=== PATIENT | male | born 1950 | race Caucasian/White ===

== ENCOUNTER 2018-08-04 13:50 | Emergency (ER) | payer OTHER ==
--- OUTSIDE RECORDS SUMMARY | 2018-08-04 14:32 | XMS REPORT ---
:1950 [facility] Address [address] [place] [address] Dr. Martínez [address] [place] [id number] Care Team Providers Name Role Phone Unavailable Unavailable Unavailable Problems This patient has no known problems. Allergies, Adverse Reactions, Alerts This patient has no known allergies or adverse reactions. Medications This patient has no known medications.
[2018-08-04 14:50] LABS: Absolute Lymphocytes (CBC) 1.4 K/uL (0.7-4.9); Absolute Monocytes 0.7 K/uL (0.1-1.3); Absolute Neutrophil 7.4 K/uL (1.8-8.0); Basophils % 0.2 % (0-1.3); Eosinophils % 0.6 % (0-4.4); Hematocrit 37.5 % (39.6-49.0); Lymphocytes % 14.2 % (15.3-44.8); MPV 7.4 fL (7.6-11.3); Monocytes % 7.6 % (3.3-12.3); RBC Red Blood Cell Count 4.16 M/uL (4.33-5.43)
[2018-08-04 15:09] LABS: BUN Blood Urea Nitrogen 23 mg/dL (7-18); Bicarbonate 29 mmol/L (21-32); Glucose Level 74 mg/dL (74-106); Magnesium 2.2 mg/dL (1.8-2.4); Potassium 4.3 mmol/L (3.5-5.1); Sodium Level 142 mmol/L (136-145); Troponin I < 0.02 ng/mL (0.0-0.045)
[2018-08-04] MEDS ORDERED: NA CHLORIDE 0.9% 500 ML ONE (15:34)
[2018-08-04] MEDS ORDERED: KETOROLAC 30 MG/ML INJ ONE (15:34)
--- NOTE | 2018-08-04 15:41 | EDPHYS ---
Physician Documentation [facility] Name: Stephen Rachel Age: 67 yrs Sex: Male : 1950 Arrival Date: 08/04/2018 Time: 13:53 Bed 14 Private MD: ED Physician Benjy Carroll HPI: 08/04 14:25 This 67 yrs old Male presents to ER via Ambulatory with complaints of Arm cp Problem, Hand Pain. 14:25 The patient or guardian complains of pain, that is acute. The complaints affect the cp right hand, left hand. Onset: The symptoms/episode began/occurred today, started after working outside and building chicken coup. Associated signs and symptoms: Pertinent negatives: numbness, swelling, warmth, weakness. Patient c/o cramping both hands that radiates up arms. Historical: - Allergies: 13:55 PENICILLINS; hj - PMHx: 13:55 TIA; hj - PSHx: 13:55 Knee surgery; neck surgery; Tonsillectomy; hj ROS: 14:30 Constitutional: Negative for body aches, chills, fever, poor PO intake. cp 14:30 Eyes: Negative for injury, pain, redness, and discharge. cp 14:30 ENT: Negative for drainage from ear(s), ear pain, sore throat, difficulty swallowing, difficulty handling secretions. 14:30 Neck: Negative for pain with movement, pain at rest, stiffness, bony tenderness. 14:30 Cardiovascular: Negative for chest pain, edema, palpitations. 14:30 Respiratory: Negative for cough, shortness of breath, wheezing. 14:30 Abdomen/GI: Negative for abdominal pain, nausea, vomiting, and diarrhea, black/tarry stool, flatulence. 14:30 MS/extremity: Positive for of the left hand and right hand, cramping pain, Negative for injury or acute deformity, decreased range of motion, paresthesias. 14:30 Skin: Negative for cellulitis, rash. 14:30 Neuro: Negative for altered mental status, headache, speech changes, weakness. 14:30 All other systems are negative. Exam: 14:30 ECG was reviewed by the Attending Physician. cp 14:35 Constitutional: The patient appears in no acute distress, alert, awake, cp non-diaphoretic, non-toxic, well developed, well nourished. 14:35 Head/Face: Normocephalic, atraumatic. cp 14:35 Eyes: Periorbital structures: appear normal, Conjunctiva: normal, no exudate, no injection, Sclera: no appreciated abnormality, Lids and lashes: appear normal, bilaterally. 14:35 ENT: External ear(s): are unremarkable, Ear canal(s): are normal, clear, TM's: bulging, is not appreciated, bilaterally, dullness, bilaterally, erythema, is not appreciated, bilaterally, Nose: is normal, Mouth: Lips: moist, Oral mucosa: pink and intact, moist, Posterior pharynx: Airway: no evidence of obstruction, patent, Tonsils: are normal in appearance, swelling, is not appreciated, erythema, is not appreciated, exudate, is not appreciated. 14:35 Neck: ROM/movement: is normal, is supple, without pain, no range of motions limitations, no nuchal rigidity. 14:35 Chest/axilla: Inspection: normal, Palpation: is normal, no crepitus, no tenderness. 14:35 Cardiovascular: Rate: normal, Rhythm: regular. 14:35 Respiratory: the patient does not display signs of respiratory distress, Respirations: normal, no use of accessory muscles, no retractions, no shallow respirations, labored breathing, is not present, Breath sounds: are clear throughout, no decreased breath sounds, no stridor, no wheezing. 14:35 Abdomen/GI: Inspection: abdomen appears normal, Palpation: abdomen is soft and non-tender, in all quadrants, involuntary guarding, is not appreciated. 14:35 Back: pain, is absent, ROM is normal. 14:35 Musculoskeletal/extremity: Extremities: grossly normal except: noted in the right hand and left hand: tenderness, There is no evidence of decreased ROM, swelling. 14:35 Skin: cellulitis, is not appreciated, no rash present. 14:35 Neuro: Orientation: to person, place \T\ time. Mentation: is normal, Cerebellar function: is grossly normal, Motor: moves all fours, strength is normal, Sensation: is normal. Vital Signs: 13:55 BP 144 / 86; Pulse 84; Resp 18; Temp 98.2(TE); Pulse Ox 97% on R/A; Weight 86.64 kg; hj Height 6 ft. 0 in. (182.88 cm); Pain 5/10; 13:55 Body Mass Index 25.91 (86.64 kg, 182.88 cm) hj MDM: 14:15 Patient medically screened. cp 15:40 Data reviewed: vital signs, nurses notes, lab test result(s), EKG, and as a result, I cp will discharge patient. 15:40 Differential diagnosis: contusion, tendonitis, fracture, cardiac arrythmia. Test cp interpretation: by ED physician or midlevel provider: ECG. Counseling: I had a detailed discussion with the patient and/or guardian regarding: the historical points, exam findings, and any diagnostic results supporting the discharge/admit diagnosis, lab results, radiology results, to return to the emergency department if symptoms worsen or persist or if there are any questions or concerns that arise at home. 08/04 14:21 Order name: BMP; Complete Time: 15:10 cp 08/04 15:10 Interpretation: Normal except: BUN 23; CRE 1.60; GFR 43. cp 08/04 14:21 Order name: CBC with Diff; Complete Time: 15:10 cp 08/04 15:11 Interpretation: Normal except: RBC 4.16; HGB 12.4; HCT 37.5; MPV 7.4; MARTY% 77.4; LYM% cp 14.2. 08/04 14:21 Order name: Troponin I; Complete Time: 15:10 cp 08/04 14:21 Order name: Magnesium; Complete Time: 15:10 cp 08/04 14:21 Order name: EKG; Complete Time: 14:21 cp 08/04 14:21 Order name: EKG - Nurse/Tech; Complete Time: 14:38 cp EC:30 Rate is 79 beats/min. Rhythm is regular. CT interval is normal. QRS interval is normal. cp QT interval is normal. Interpreted by me. Reviewed by me. Administered Medications: 15:25 Drug: TORadol - Ketorolac 15 mg Route: IVP; Site: right antecubital; sg 15:50 Follow up: Response: No adverse reaction; Pain is decreased sg 15:25 Drug: NS 0.9% 500 ml Route: IV; Rate: bolus; Site: right antecubital; sg 16:00 Follow up: Response: No adverse reaction; IV Status: Completed infusion; IV Intake: sg 500ml Disposition: 16:46 Co-signature as Attending Physician, Benjy Carroll MD. Disposition: 08/04/18 15:40 Discharged to Home. Impression: Cramp and spasm - hands and forearms. - Condition is Stable. - Discharge Instructions: Dehydration, Adult, Muscle Cramps and Spasms. - Medication Reconciliation Form, Thank You Letter, Antibiotic Education, Prescription Opioid Use form. - Follow up: Private Physician; When: 2 - 3 days; Reason: Recheck today's complaints. - Problem is new. - Symptoms have improved. Signatures: Dispatcher [employer] EDMS Hari Samaniego RN RN sg Zachariah Reddy RN RN Christian Niño PA PA cp Starr, Gregory, MD MD gs Botello, Elizabeth eb Corrections: (The following items were deleted from the chart) 15:43 15:40 08/04/2018 15:40 Discharged to Home. Impression: Cramp and spasm - hands and cp forearms. Condition is Stable. Forms are Medication Reconciliation Form, Thank You Letter, Antibiotic Education, Prescription Opioid Use. Follow up: Private Physician; When: 2 - 3 days; Reason: Recheck today's complaints. Problem is new. Symptoms have improved. cp 16:08 15:43 08/04/2018 15:40 Discharged to Home. Impression: Cramp and spasm - hands and eb forearms. Condition is Stable. Discharge Instructions: Dehydration, Adult, Muscle Cramps and Spasms. Forms are Medication Reconciliation Form, Thank You Letter, Antibiotic Education, Prescription Opioid Use. Follow up: Private Physician; When: 2 - 3 days; Reason: Recheck today's complaints. Problem is new. Symptoms have improved. cp
--- NOTE | 2018-08-04 15:41 | ER ---
Nurse's Notes [facility] Name: Stephen Rachel Age: 67 yrs Sex: Male : 1950 Arrival Date: 08/04/2018 Time: 13:53 Bed 14 Private MD: Diagnosis: Cramp and spasm-hands and forearms Presentation: 08/04 13:53 Presenting complaint: Patient states: i built a chicken coup today and took a lunch hj break and noticed both my hands and arms started cramping; denies chest pain, denies SOB; denies trauma to the both hands and arms;. Transition of care: patient was not received from another setting of care. Onset of symptoms was August 04, 2018. Risk Assessment: Do you want to hurt yourself or someone else? Patient reports no desire to harm self or others. Initial Sepsis Screen: Does the patient meet any 2 criteria? No. Patient's initial sepsis screen is negative. Does the patient have a suspected source of infection? No. Patient's initial sepsis screen is negative. Care prior to arrival: None. 13:53 Method Of Arrival: Ambulatory 13:53 Acuity: ENEIDA 3 hj Historical: - Allergies: 13:55 PENICILLINS; hj - PMHx: 13:55 TIA; hj - PSHx: 13:55 Knee surgery; neck surgery; Tonsillectomy; Vital Signs: 13:55 BP 144 / 86; Pulse 84; Resp 18; Temp 98.2(TE); Pulse Ox 97% on R/A; Weight 86.64 kg; hj Height 6 ft. 0 in. (182.88 cm); Pain 5/10; 13:55 Body Mass Index 25.91 (86.64 kg, 182.88 cm) ED Course: 13:53 Patient arrived in ED. hj 13:55 Triage completed. hj 13:56 Arm band placed on right wrist. hj 14:04 Christian Henderson PA is [facility]. cp 14:04 Benjy Carroll MD is Attending Physician. cp 14:23 EKG done, by chemistry technologist. reviewed by Christian WHEELER. sm3 14:28 Hari Samaniego, RN is Primary Nurse. sg 14:33 Initial lab(s) drawn, by me, sent to lab. Inserted saline lock: 20 gauge in right dh3 antecubital area, using aseptic technique. Blood collected. Administered Medications: 15:25 Drug: TORadol - Ketorolac 15 mg Route: IVP; Site: right antecubital; sg 15:50 Follow up: Response: No adverse reaction; Pain is decreased 15:25 Drug: NS 0.9% 500 ml Route: IV; Rate: bolus; Site: right antecubital; sg 16:00 Follow up: Response: No adverse reaction; IV Status: Completed infusion; IV Intake: sg 500ml Intake: 16:00 IV: 500ml; Total: 500ml. Outcome: 15:40 Discharge ordered by . naomi 16:08 Patient left the ED. eb Signatures: Hari Samaniego RN RN Zachariah Reddy RN RN hj Page, Corey, PA PA cp Herrera, Deanna [facility] Peg De Oliveira Shakira 3 Corrections: (The following items were deleted from the chart) 13:58 13:55 Pulse 84bpm; Resp 18bpm; Pulse Ox 97% RA; Temp 98.2F Temporal; 86.64 kg; Height 6 hj ft. 0 in.; BMI: 25.9; Pain 5/10; hj
[2018-08-04 16:26] VITALS: BP 144/86; TEMP 98.2; O2SAT 97
--- NOTE | 2018-08-05 08:29 | EKG ---
Test Date: 2018-08-04 Test Time: 14:23:50 Oil Well Engineer: ZIA MEASUREMENT RESULTS: Intervals: Rate: 79 KS: 148 QRSD: 74 QT: 352 QTc: 403 [place]: P: 45 KS: 148 QRS: 57 T: 60 INTERPRETIVE STATEMENTS: Normal sinus rhythm Normal ECG Compared to ECG 03/15/2017 16:22:04 No significant changes Electronically Signed On 08-05-18 08:28:30 CDT by Silver Tony
== END 2018-08-04 16:08 | disposition home or self-care (01) ==
LOC: ER 13:50
DX: R25.2 Cramp and spasm (principal); Z88.0 Allergy status to penicillin
CPT/HCPCS: 36415; 80048; 83735; 84484; 85025; 93005; 96361; 96374; 99284

== ENCOUNTER 2021-01-01 16:46 | Emergency (ER) | payer OTHER ==
[2021-01-01 17:23] LABS: Absolute Lymphocytes (CBC) 1.9 K/uL (0.7-4.9); Basophils % 0.2 % (0-1.3); Hematocrit 39.7 % (39.6-49.0); Lymphocytes % 19.5 % (15.3-44.8); MPV 6.8 fL (7.6-11.3); RBC Red Blood Cell Count 4.35 M/uL (4.33-5.43)
[2021-01-01 17:46] LABS: Albumin 3.4 g/dL (3.4-5.0); Bilirubin Direct 0.1 mg/dL (0-0.2); Bilirubin Total 0.3 mg/dL (0.2-1.0); Potassium 4.1 mmol/L (3.5-5.1); Protein, Total 7.3 g/dL (6.4-8.2)
[2021-01-01] MEDS ORDERED: MORPHINE 4 MG/ML SYR ONE (17:48)
[2021-01-01] MEDS ORDERED: ONDANSETRON 4 MG/2 ML VIAL ONE (17:48)
--- NOTE | 2021-01-01 19:00 | RAD REPORT ---
EXAM DESCRIPTION: CTAbdomen Pelvis W Contrast - 01/01/2021 6:45 pm CLINICAL HISTORY: Abdominal pain. ABD PAIN COMPARISON: No comparisons TECHNIQUE: Biphasic CT imaging of the abdomen and pelvis was performed with 100 ml non-ionic IV cont rast. All CT scans are performed using dose optimization technique as appropriate and may include automated exposure control or mA/KV adjustment according to patient size. FINDINGS: The lung bases are clear. The liver, spleen, pancreas, adrenal glands and kidneys are within normal limits. 29 mm medial benign cyst right kidney. No bowel obstruction, free air, free fluid or abscess. The appendix is normal. No evidence of signi ficant lymphadenopathy. No suspicious bony findings. IMPRESSION: No acute intra-abdominal or pelvic finding.
--- NOTE | 2021-01-01 19:06 | EDPHYS ---
Physician Documentation [facility] Name: Stephen Rachel Age: 70 yrs Sex: Male : 1950 Arrival Date: 01/01/2021 Time: 16:47 Bed 14 Private MD: Rosario Schmitt ED Physician Melvin Adams HPI: 01/01 17:18 This 70 yrs old Male presents to ER via Ambulatory with complaints of jr8 Abdominal Pain. 17:18 The patient presents with abdominal pain. Onset: The symptoms/episode began/occurred jr8 gradually, 2 day(s) ago, and became worse and became persistent. The symptoms do not radiate. Associated signs and symptoms: Pertinent positives: nausea. The symptoms are described as stabbing. Severity of pain: At its worst the pain was moderate in the emergency department the pain is unchanged. The patient has not experienced similar symptoms in the past. The patient has not recently seen a physician. Patient also noticed that he had a defect near the umbilical region that is exquisitely tender as well. Denies trauma to the abdomen.. Historical: - Allergies: 16:50 PENICILLINS; tw2 - Home Meds: 16:56 levothyroxine 50 mcg cap 1 cap once daily [Active]; clopidogrel 75 mg oral tab 1 tab tw2 once daily [Active]; losartan 50 mg oral tab 1 tab 2 times per day [Active]; atorvastatin 20 mg oral tab 1 tab once daily [Active]; Zyrtec 10 mg Oral tab 1 tab once daily [Active]; sildenafil 100 mg oral tab 1 tab once daily [Active]; 17:02 pantoprazole 40 mg oral TbEC 1 tab once daily [Active]; es2 - PMHx: 16:50 TIA; tw2 16:56 Hypothyroidism; tw2 - PSHx: 16:50 Tonsillectomy; tw2 - Immunization history:: Client reports receiving the 2nd dose of the Covid vaccine. - Social history:: Smoking status: Patient denies any tobacco usage or history of. Patient uses alcohol, occasionally. ROS: 17:18 Eyes: Negative for injury, pain, redness, and discharge, ENT: Negative for injury, jr8 pain, and discharge, Neck: Negative for injury, pain, and swelling, Cardiovascular: Negative for chest pain, palpitations, and edema, Respiratory: Negative for shortness of breath, cough, wheezing, and pleuritic chest pain, Back: Negative for injury and pain, MS/Extremity: Negative for injury and deformity, Skin: Negative for injury, rash, and discoloration, Neuro: Negative for headache, weakness, numbness, tingling, and seizure. 17:18 Abdomen/GI: Negative for abdominal pain, nausea. Exam: 17:18 Cardiovascular: Regular rate and rhythm with a normal S1 and S2. No gallops, murmurs, jr8 or rubs. Normal PMI, no JVD. No pulse deficits. Respiratory: Lungs have equal breath sounds bilaterally, clear to auscultation and percussion. No rales, rhonchi or wheezes noted. No increased work of breathing, no retractions or nasal flaring. Back: No spinal tenderness. No costovertebral tenderness. Full range of motion. Skin: Warm, dry with normal turgor. Normal color with no rashes, no lesions, and no evidence of cellulitis. MS/ Extremity: Pulses equal, no cyanosis. Neurovascular intact. Full, normal range of motion. Neuro: Awake and alert, GCS 15, oriented to person, place, time, and situation. Cranial nerves II-XII grossly intact. Motor strength 5/5 in all extremities. Sensory grossly intact. 17:18 Constitutional: The patient appears alert, awake, in obvious pain. 17:18 Abdomen/GI: Inspection: distension, that is mild, Bowel sounds: high pitched, all quadrants. Palpation: soft, in all quadrants, moderate abdominal tenderness, in the abdomen diffusely, mass, is not appreciated, rebound tenderness, is not appreciated, voluntary guarding, is not appreciated, involuntary guarding, is not appreciated, no appreciated organomegaly, Indicators: McBurney's point is not tender, Jackson's sign is negative, Rovsing's sign is negative, Hernia: noted in the umbilical area, tenderness, that is severe. Vital Signs: 16:48 BP 168 / 71; Pulse 83; Resp 18; Temp 98.3(TE); Pulse Ox 95% on R/A; Weight 90.72 kg; tw2 Height 6 ft. 0 in. (182.88 cm); Pain 7/10; 17:06 BP 158 / 74; Pulse 84; Resp 17; Pulse Ox 95% on R/A; es2 16:48 Body Mass Index 27.12 (90.72 kg, 182.88 cm) tw2 MDM: 17:07 Patient medically screened. jr8 19:04 Data reviewed: vital signs, nurses notes, lab test result(s), radiologic studies, CT jr8 scan. Data interpreted: Pulse oximetry: on room air is 95 %. Interpretation: normal. Counseling: I had a detailed discussion with the patient and/or guardian regarding: the historical points, exam findings, and any diagnostic results supporting the discharge/admit diagnosis, lab results, radiology results, the need for outpatient follow up, a general surgeon, to return to the emergency department if symptoms worsen or persist or if there are any questions or concerns that arise at home. ED course: Explained to patient that was able to reduce what appeared to be a small umbilical hernia. Labs were unremarkable and CAT scan did not show any incarceration, strangulation, bowel obstruction or any other acute emergent finding. Recommended that he follow-up with general surgery to recheck that region. Otherwise if he were to get worse come back immediately for further evaluation. Patient with plan at this time.. 01/01 17:07 Order name: Basic Metabolic Panel; Complete Time: 17:58 jr8 01/01 17:07 Order name: CBC with Diff; Complete Time: 17:58 jr8 01/01 17:07 Order name: Hepatic Function; Complete Time: 17:58 jr8 01/01 17:07 Order name: Lipase; Complete Time: 17:58 jr8 01/01 18:29 Order name: CT Abd/Pelvis - IV Contrast Only; Complete Time: 19:02 jr8 01/01 17:07 Order name: IV Saline Lock; Complete Time: 17:15 jr8 01/01 17:07 Order name: Labs collected and sent; Complete Time: 17:15 jr8 Administered Medications: 17:26 Drug: morphine 4 mg {Note: Rass 0.} Route: IVP; Site: right antecubital; es2 17:26 Follow up: Response: No adverse reaction es2 17:26 Drug: Zofran (Ondansetron) 4 mg Route: IVP; Site: right antecubital; es2 17:26 Follow up: Response: No adverse reaction es2 Disposition: 23:47 Co-signature as Attending Physician, Melvin Adams MD I agree with the assessment and kdr plan of care. Disposition Summary: 01/01/21 19:05 Discharge Ordered Location: Home jr8 Problem: new jr8 Symptoms: have improved jr8 Condition: Stable jr8 Diagnosis - Umbilical hernia without obstruction or gangrene jr8 Followup: jr8 - With: Brody Martins MD - When: 5 - 6 days - Reason: Recheck today's complaints, Continuance of care, Re-evaluation by your physician Discharge Instructions: - Discharge Summary Sheet jr8 - Hernia, Adult jr8 - Umbilical Hernia, Adult jr8 Forms: - Medication Reconciliation Form jr8 - Thank You Letter jr8 - Antibiotic Education jr8 - Prescription Opioid Use jr8 Signatures: Dispatcher [employer] EDMS Melvin Adams MD MD kdr Que Henderson PA PA jr8 Clara Mcdaniel RN RN tw2 Peg Phelan RN RN es2 Corrections: (The following items were deleted from the chart) 17:03 17:02 Allergies: pantoprazole; es2 es2
--- NOTE | 2021-01-01 19:06 | ER ---
Nurse's Notes [facility] Name: Stephen Rachel Age: 70 yrs Sex: Male : 1950 Arrival Date: 01/01/2021 Time: 16:47 Bed 14 Private MD: Rosario Schmitt Diagnosis: Umbilical hernia without obstruction or gangrene Presentation: 01/01 16:48 Chief complaint: Patient states: i have been having stomach problems. it started last tw2 week. it has just gotten worse and worse. i also feel like i have this swelling near my belly button that come up and when you touch it it hurts down into the groin. denies N/V/D. Coronavirus screen: At this time, the client does not indicate any symptoms associated with coronavirus-19. Ebola Screen: Patient denies travel to an Ebola-affected area in the 21 days before illness onset. Initial Sepsis Screen: Does the patient meet any 2 criteria? No. Patient's initial sepsis screen is negative. Does the patient have a suspected source of infection? No. Patient's initial sepsis screen is negative. Risk Assessment: Do you want to hurt yourself or someone else? Patient reports no desire to harm self or others. Onset of symptoms was January 01, 2021. 16:48 Method Of Arrival: Ambulatory tw2 16:48 Acuity: ENEIDA 3 tw2 Triage Assessment: 16:51 General: Appears uncomfortable, Behavior is calm, cooperative, appropriate for age. tw2 Pain: Complains of pain in umbilical area, right lower quadrant and left lower quadrant. GI: Reports lower abdominal pain. Historical: - Allergies: 16:50 PENICILLINS; tw2 - Home Meds: 16:56 levothyroxine 50 mcg cap 1 cap once daily [Active]; clopidogrel 75 mg oral tab 1 tab tw2 once daily [Active]; losartan 50 mg oral tab 1 tab 2 times per day [Active]; atorvastatin 20 mg oral tab 1 tab once daily [Active]; Zyrtec 10 mg Oral tab 1 tab once daily [Active]; sildenafil 100 mg oral tab 1 tab once daily [Active]; 17:02 pantoprazole 40 mg oral TbEC 1 tab once daily [Active]; es2 - PMHx: 16:50 TIA; tw2 16:56 Hypothyroidism; tw2 - PSHx: 16:50 Tonsillectomy; tw2 - Immunization history:: Client reports receiving the 2nd dose of the Covid vaccine. - Social history:: Smoking status: Patient denies any tobacco usage or history of. Patient uses alcohol, occasionally. Screenin:56 Abuse screen: Denies threats or abuse. Nutritional screening: No deficits noted. tw2 Tuberculosis screening: No symptoms or risk factors identified. Fall Risk None identified. Assessment: 17:05 General: Appears uncomfortable, well developed, well nourished, Behavior is calm, es2 cooperative, appropriate for age. Pain: Complains of pain in abdomen and umbilical area Pain currently is 7 out of 10 on a pain scale. Neuro: Level of Consciousness is awake, alert, obeys commands, Oriented to person, place, time, situation, Appropriate for age Speech is normal. Cardiovascular: Capillary refill < 3 seconds Patient's skin is warm and dry. Respiratory: Airway is patent Respiratory effort is even, Respiratory pattern is regular. GI: Bowel sounds Abdomen is tender to palpation X 4 quads. : Reports burning with urination, since today. EENT: No signs and/or symptoms were reported regarding the EENT system. Derm: No signs and/or symptoms reported regarding the dermatologic system. Musculoskeletal: No signs and/or symptoms reported regarding the musculoskeletal system. Vital Signs: 16:48 BP 168 / 71; Pulse 83; Resp 18; Temp 98.3(TE); Pulse Ox 95% on R/A; Weight 90.72 kg; tw2 Height 6 ft. 0 in. (182.88 cm); Pain 7/10; 17:06 BP 158 / 74; Pulse 84; Resp 17; Pulse Ox 95% on R/A; es2 16:48 Body Mass Index 27.12 (90.72 kg, 182.88 cm) tw2 ED Course: 16:47 Patient arrived in ED. mr 16:47 Rosario Schmitt MD is Private Physician. mr 16:50 Triage completed. tw2 16:51 Arm band placed on. tw2 16:52 Bed in low position. Call light in reach. Adult w/ patient. tw2 16:58 Peg Phelan, MITCH is Primary Nurse. es2 17:06 No provider procedures requiring assistance completed. es2 17:07 Que Henderson PA is PHCP. jr8 17:07 Melvin Adams MD is Attending Physician. jr8 17:15 Basic Metabolic Panel Sent. es2 17:15 CBC with Diff Sent. es2 17:15 Hepatic Function Sent. es2 17:15 Lipase Sent. es2 17:15 Inserted saline lock: 20 gauge in right antecubital area, using aseptic technique. es2 Blood collected. 17:26 Basic Metabolic Panel Sent. es2 17:26 CBC with Diff Sent. es2 17:26 Hepatic Function Sent. es2 17:26 Lipase Sent. es2 18:44 CT Abd/Pelvis - IV Contrast Only In Process Unspecified. EDMS 19:05 Brody Martins MD is Referral Physician. jr8 Administered Medications: 17:26 Drug: morphine 4 mg {Note: Rass 0.} Route: IVP; Site: right antecubital; es2 17:26 Follow up: Response: No adverse reaction es2 17:26 Drug: Zofran (Ondansetron) 4 mg Route: IVP; Site: right antecubital; es2 17:26 Follow up: Response: No adverse reaction es2 Outcome: 19:05 Discharge ordered by . jr8 20:03 Patient left the ED. sj1 Signatures: Dispatcher [employer] EDMS Felipe June mr Que Henderson PA PA jr8 Clara Mcdaniel RN RN tw2 Leticia Dawson RN RN sj1 Peg Phelan RN RN es2 Corrections: (The following items were deleted from the chart) 17:03 17:02 Allergies: pantoprazole; es2 es2
[2021-01-01 20:10] VITALS: TEMP 98.3; O2SAT 95
[2021-01-01 20:11] VITALS: BP 158/74
== END 2021-01-01 20:03 | disposition home or self-care (01) ==
LOC: ER 16:46
DX: K42.9 Umbilical hernia without obstruction or gangrene (principal); E03.9 Hypothyroidism, unspecified; Z86.73 Personal history of transient ischemic attack (TIA), and cerebral infarction without residual deficits; Z88.0 Allergy status to penicillin
CPT/HCPCS: 85025; 80048; 36415; 80076; 83690; 74177; Q9967; J2405

== ENCOUNTER 2021-01-13 07:34 | Day surgery (SDC) | payer OTHER ==
[2021-01-13] MEDS: BUPIVACAINE 0.25% PF 30 ML VIAL ONE ×2 (08:16→09:10)
[2021-01-13] MEDS ORDERED: Ringers Lactate 1,000 ML IV ONE (08:33)
[2021-01-13] MEDS ORDERED: propofoL 200 MG/20 ML VIAL IV ONE ×2 (08:45→09:38)
[2021-01-13] MEDS ORDERED: FENTANYL CITR 100 MCG/2 ML ONE (08:45)
[2021-01-13] MEDS ORDERED: MIDAZOLAM HCL 2 MG/2 ML INJ ONE (08:45)
[2021-01-13] MEDS ORDERED: ROCURONIUM 50 MG/5 ML VIAL IV ONE (08:46)
[2021-01-13] MEDS ORDERED: ACETAMINOPHEN 500 MG TAB ONE (08:49)
[2021-01-13] MEDS ORDERED: CELECOXIB 100 MG CAPSULE ONE (08:49)
[2021-01-13] MEDS ORDERED: GLYCOPYRROLATE 0.2 MG/ML SYR ONE ×2 (09:05→09:50)
[2021-01-13] MEDS ORDERED: VANCOMYCIN 1 GM/VIAL ONE (09:10)
[2021-01-13] MEDS ORDERED: EPHEDRINE SULF 50 MG/ML VIAL ONE (09:39)
--- NOTE | 2021-01-13 09:46 | P.OP ---
Preoperative diagnosis: Umbilical Hernia Postoperative diagnosis: Incarcerated Umbilical Hernia Primary procedure: Open Umbilical Hernia Repair with mesh Anesthesia: GETA + Local Estimated blood loss: <5cc Specimen: hernia contents Findings: incarcearted omental tissue Complications: None Implants: 4.3cm round Bard Ventralex Mesh Transferred to: Recovery Room Condition: Good
[2021-01-13] MEDS ORDERED: ONDANSETRON 4 MG/2 ML VIAL ONE (09:49)
[2021-01-13] MEDS ORDERED: KETOROLAC 30 MG/ML INJ ONE (09:49)
[2021-01-13] MEDS: HYDROMORPHONE HCL 1 MG/ML INJ ONE ×2 (10:19→10:33)
[2021-01-13] MEDS ORDERED: NEOSTIGMINE 1 MG/ML -5 ML ONE (10:20)
--- NOTE | 2021-01-13 11:16 | OP ---
Date of Procedure: 01/13/2021 Surgeon: Brody Martins MD, Preoperative Diagnosis: Umbilical hernia. Postoperative Diagnosis: Incarcerated umbilical hernia. Procedure: Open umbilical hernia repair with mesh. Anesthesia: General endotracheal plus local with 0.25% Marcaine. Estimated Blood Loss: Less than 5 cc. Specimens: Hernia contents. Findings: Incarcerated omental tissue. Complications: None. Implants: 4.3 cm Bard Ventralex mesh round. Disposition: The patient was transferred to the recovery room in good condition. Procedure In Detail: After informed consent was obtained, the patient was brought to the operating r oom, prepped and draped in the usual sterile fashion after adequate anesthesia was achieved. The inf raumbilical area was anesthetized with 0.25% Marcaine, sharply incised and dissection continued down circumferentially around to expose the hernia sac. Hernia sac was grasped, elevated, and entered sha rply with Metzenbaum scissors. Hernia sac was grasped, elevated, and omental entrapped fat was noted to be incarcerated within this area. The omentum entrapped within the incarcerated hernia was amput ated using electrocautery and sent off for pathologic examination as hernia contents. I then perform ed finger sweep on the preperitoneal space to allow for a clean landing position of the mesh in the p reperitoneal space. At this point, I brought in a 4.3 cm Bard Ventralex mesh with sail, hydrated damien ropriately, and used 0 PDS sutures in a circumferential fashion and parachuted in the preperitoneal s pace and secured. At this point, I closed the fascia over the top after irrigating the area and dryi ng it. The fascial defect was closed using a running 0 PDS suture. Deep dermal planes were closed u sing interrupted 3-0 Vicryl sutures. Skin was closed with 4-0 Monocryl in a running fashion. Dermab ond placed over top. The patient tolerated the procedure well without evidence of complication and t ransferred to PACU in good condition. All counts were correct at the end of the case. GAIL/ASHISH Voice ID: [id number] Report ID: [id number]
[2021-01-13 11:25] VITALS: BP 122/65; TEMP 96.4; O2SAT 92
[2021-01-13] MEDS ORDERED: HYDROCODONE/APAP 7.5/325 MG TAB ONE (11:44)
== END 2021-01-13 11:45 | disposition home or self-care (01) ==
LOC: PRE 07:34
PROVIDERS: ATTEND Surgery
PROC: 0WUF0JZ Supplement Abdominal Wall with Synthetic Substitute, Open Approach (ICD-10-PCS; principal; 2021-01-13 08:30)
DX: K42.0 Umbilical hernia with obstruction, without gangrene (principal); Z20.822 Contact with and (suspected) exposure to COVID-19
CPT/HCPCS: 88302; 49587; U0003; J2704 ×2; J2250; J3010; J3370; J1170; J2710; J7120; J2405

== ENCOUNTER 2022-08-12 13:58 | Emergency (ER) | payer OTHER ==
--- OUTSIDE RECORDS SUMMARY | 2022-08-12 14:04 | XMS REPORT | Continuity of Care Document ---
:1950 Author Organization [facility] t Address [address] [facility] [address] [place] [address] Care Team Providers Name Role Phone KAYLA GARCIA Primary Care Physician Unavailable Levon Hubbard Attending Clinician Unavailable JAMMIE CLEVELAND Attending Clinician Unavailable KAYLA GARCIA Attending Clinician Unavailable [facility] Attending Clinician Unavailable [id number] Attending Clinician Unavailable Graciela Osborne DPM Attending Clinician Jackelin Hayes MD Attending Clinician Chino Flores MD Attending Clinician Nica Garrett Attending Clinician Jammie Cleveland MD Attending Clinician Doctor Unassigned, [place] Attending Clinician Unavailable Keith Jean DPM Attending Clinician Jazz Adhikari CRNA Attending Clinician [phone], [facility] Attending Clinician Unavailable JACKELIN HAYES Admitting Clinician Unavailable Keith Jean DPM Admitting Clinician Payers Payer Name Policy Type Policy Number Effective Date Expiration Date Isabella NOBLE MA PPO 5 [id number] 2021 00:00:00 [employer]ETNA MEDICARE C1 [id number] [facility] AETNA MEDICARE C1 [id number] [facility] AETNA MEDICARE C1 [id number] [facility] AETNA MEDICARE C1 [id number] [facility] AETNA MEDICARE C1 [id number] [facility] AETNA MEDICARE C1 [id number] [facility] - [facility] Problems Condition Condition Condition Status Onset Resolution Last Treating Co mments Source Name Details Category Date Date Treatment Clinician Date Stage 3a Stage 3a Disease Active Kelse y chronic chronic 2 Seybold kidney kidney 00:00: - disease disease 00 Externa l Benign Benign Disease Active Liliana cyst of cyst of 04-23 Seybold right right 00:00: - kidney kidney 00 Externa l Well adult Well adult Disease Active 2021-03 K elseskyler exam exam 05-14 Seybold 00:00: - 00 Externa l Seasonal Seasonal Disease Active 2021-03 Kelse y allergic allergic 05-14 Seybol d rhinitis rhinitis 00:00: - due to due to 00 Externa pollen pollen l Acquired Acquired Disease Active Kelse y hypothyroi hypothyroi 12-08 Se ybold dism dism 00:00: - 00 Externa l Gastroesop Gastroesop Disease Active K lynnette hageal hageal 12-08 Seybold reflux reflux 00:00: - disease disease 00 Externa without without l esophagiti esophagiti s s History of History of Disease Active Overview : Liliana TIA TIA 12-08 Formattin Seybold (transient (transient 00:00: g of this - ischemic ischemic 00 note Viscosity Tester a attack) attack) might be l different from the original. Cardiolog y-Dr. Stoner, Neurology -Dr. 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 (TIA), and Medica l cerebral Center infarction without residual deficits [id number] Vitamin D Problem Active Comm on deficiency [facility] [id number] Hypothyroi Problem Active Com mon dism, Spirit unspecifie - CHI d type [facility] Gastroesop Gastroesop Problem Active C ommon hageal hageal Spirit reflux reflux - CHI disease disease, St esophagiti [facility] s presence Medica l not Center specified [id number] +5th digit Problem Active Co mmon eff Spirit 12/21/19*CK - [facility] D (chronic [facility] kidney [facility] disease), Medical stage III Center [id number] Iron Problem Active Common deficiency Spirit anemia, - CHI unspecifie [facility] iron [facility] deficiency Medica l anemia Center type [id number] Erectile Problem Active Comm on dysfunctio Spirit n, - CHI unspecifie St d erectile [facility] dysfunctio Medica l n type Center Allergies, Adverse Reactions, Alerts Allergy Allergy Status Severity Reaction(s) Onset Inactive Treating Comm ents Source Name Type Date Date Clinician Amoxicil Propensi Active 2021-03 Other Liliana silvia ty to 2-23 reaction( Seybold adverse 00:00: s): Info - reaction 00 Not Externa s Available l , Unknown Penicill Propensi Active Other FACIAL Liliana ins ty to 4-21 SWELLING- Seybold adverse 00:00: - reaction 00 Externa s l PENICILL Drug Active Swelling Univer s INS Class 4-21 ity of 00:00: [place] 00 Medical Branch Penicill Propensi Active Swelling Univ ers ins ty to 07-10 ity of adverse 00:00: [place] reaction 00 Medical s Branch Penicill Propensi Active Other (See FACIAL Me thodi ins ty to Comments) 07-10 SWELLING- st adverse 00:00: Hospita reaction 00 l s to drug amoxicil amoxicil Active Unknown Commo n silvia vega Spirit - [facility] Social History Social Habit Start Date Stop Date Quantity Comments Source History of Tobacco Common [facility] - Use [facility] History SDOH Liliana Seybprasanna ld - Alcohol Frequency Externa l History SDOH Liliana Seybo ld - Alcohol Std Drinks Viscosity Tester al History SDOH Liliana Elenaybprasanna ld - Alcohol Binge External Exposure to Not sure University of SARS-CoV-2 (event) [facility] identity [facility] Tobacco use and 2021-12-08 2021-12-08 Smokeless Liliana Elena ybtommie - exposure 00:00:00 00:00:00 tobacco non-user External Education 2021-12-08 2021-12-08 16 Liliana Medrano - 00:00:00 00:00:00 External Alcohol intake 2021-11-14 2021-11-14 Current drinker Metho dist 00:00:00 00:00:00 of [facility] (finding) History of Social 2021-11-14 2021-11-[address] function 00:00:00 00:00:00 Hospital Cigarettes smoked 2021-11-11 2021-11-[address] current (pack per 00:00:00 00:00:00 Hospita l day) - Reported Cigarette 2021-11-11 2021-11-11 [facility] pack-years 00:00:00 00:00:00 Hospital Alcohol Comment 2021-11-11 2021-11-11 SOCIAL [facility] 00:00:00 00:00:00 Hospital Sex Assigned At [birth year] [facility] 00:00:00 00:00:00 Hospital Smoking Status Start Date Stop Date Source Ex-smoker 2021-12-08 00:00:00 2021-12-08 00:00:00 Liliana ma - External Never Smoker Common [facility] - [facility] Ce nter Current every day 2016-11-09 00:00:00 [facility] [place] Medications Ordered Filled Start Stop Current Ordering Indication Dosage Frequency Signature Comments Components Source Medication Medication Date Date Medication? Clinician (SIG) Name Name Losartan Yes [id number] 50mg Take 1 Krzysztof sey Potassium 2-02 tablet (50 Seyb old (COZAAR) 50 00:00: mg total) - MG oral 00 by mouth Externa Tablet daily l Famotidine 2021-03 Yes 20mg Take 20 mg K elsey (PEPCID) 20 2-23 by mouth 2 Se ybold MG oral 11:14: times - tablet 06 daily Externa l Famotidine 2021-03 Yes 20mg Take 20 mg K elsey (PEPCID) 20 2-23 by mouth 2 Se ybold MG oral 11:14: times - tablet 06 daily Externa l Pantoprazol 2021-03- No 1{tbl} Take 1 K elsey e Sodium 40 2-23 12-23 tablet by Se ybold MG oral 11:13: 00:00 mouth - Tablet 53 :00 Externa Delayed l Response Cetirizine 2021-03 Yes 10mg Take 10 mg K elsey 10 MG oral 2-23 by mouth Seybo ld Tablet 10:36: daily - 32 Externa l Cetirizine 2021-03 Yes 10mg Take 10 mg K elsey 10 MG oral 2-23 by mouth Seybo ld Tablet 10:36: daily - 32 Externa l Levothyroxi 2021-03 Yes [id number] TAKE 1 Liliana ne Sodium 2-21 TABLET BY Seybo ld 75 MCG oral 00:00: MOUTH - Tablet 00 EVERY Externa MORNING ON l EMPTY STOMACH. Levothyroxi 2021-03 Yes [id number] TAKE 1 Liliana ne Sodium 2-21 TABLET BY Seybo ld 75 MCG oral 00:00: MOUTH - Tablet 00 EVERY Externa MORNING ON l EMPTY STOMACH. Ketoconazol 2021-03 Yes APPLY THIN Liliana e 2 % apply 0-05 LAYER Seybold externally 00:00: TWICE - Cream 00 DAILY TO Externa AFFECTED l AREAS ON FACE KETOCONAZOL 2021-03 Yes USE 3-4 Krzysztof sey E, TOPICAL, 0-05 TIMES Seybold 2 % apply 00:00: WEEKLY. - externally 00 LEAVE ON Exter na Shampoo FOR 5-10 l MINUTES BEFORE RINSING. Ketoconazol 2021-03 Yes APPLY THIN Liliana e 2 % apply 0-05 LAYER Seybold externally 00:00: TWICE - Cream 00 DAILY TO Externa AFFECTED l AREAS ON FACE KETOCONAZOL 2021-03 Yes USE 3-4 Krzysztof sey E, TOPICAL, 0-05 TIMES Seybold 2 % apply 00:00: WEEKLY. - externally 00 LEAVE ON Exter na Shampoo FOR 5-10 l MINUTES BEFORE RINSING. Famotidine Yes [id number] 20mg Take 1 Liliana (Pepcid) 20 9-20 tablet (20 Se ybold MG oral 00:00: mg total) - tablet 00 by mouth 2 Externa times l daily Famotidine 2021- No [id number] 20mg Take 1 Liliana (Pepcid) 20 9-20 12-23 tablet (20 S eybold MG oral 00:00: 00:00 mg total) - tablet 00 :00 by mouth 2 Externa times l daily Cetirizine Yes 10mg Take 10 mg K elsey 10 MG oral 9-19 by mouth Seybo ld Tablet 08:22: daily - 09 Externa l Clopidogrel 0 Yes [id number] 75mg Take 1 Liliana Bisulfate 9-19 tablet (75 Seyb old 75 MG oral 00:00: mg total) - Tablet 00 by mouth Externa every l other day Clopidogrel 0 Yes [id number] 75mg Take 1 Liliana Bisulfate 9-19 tablet (75 Seyb old 75 MG oral 00:00: mg total) - Tablet 00 by mouth Externa every l other day Clopidogrel 2021-0 Yes [id number] 75mg Take 1 Liliana Bisulfate 9-19 tablet (75 Seyb old 75 MG oral 00:00: mg total) - Tablet 00 by mouth Externa every l other day Atorvastati 0 Yes 20mg Take 20 mg Liliana n Calcium 8-30 by mouth Seybol d 20 MG oral 00:00: daily - Tablet 00 Externa l Atorvastati 2021-0 Yes 20mg Take 20 mg Liliana n Calcium 8-30 by mouth Seybol d 20 MG oral 00:00: daily - Tablet 00 Externa l Atorvastati 2022-0 Yes 20mg Take 20 mg Liliana n Calcium 8-30 by mouth Seybol d 20 MG oral 00:00: daily - Tablet 00 Externa l sildenafiL Yes sildenafil M ethodi (VIAGRA) 8-[address] 100 MG 12:35: tablet Hospita tablet 17 l pantoprazol Yes pantoprazo Methodi e 8-[address] (PROTONIX) 12:35: tablet,del H ospita 40 MG EC 17 ayed l tablet release doxycycline Yes 100mg 1 capsule Methodi (VIBRAMYCIN 8-25 ([address] ) 100 MG 12:35: total). Hospit a capsule 17 l atorvastati Yes 20mg QD Take 1 Meth huma n (LIPITOR) 8-25 tablet (20 st 20 mg 12:35: mg total) Hospita tablet 17 by mouth l daily. Default OP ins HYDROcodone Yes hydrocodon Methodi -acetaminop 8-[address] (NORCO) 00:00: mg-acetami Hospita 5-325 mg 00 nophen 325 l per tablet mg tablet Losartan Yes 50mg Take 50 mg Krzysztof sey Potassium 8-10 by mouth Seybol d 50 MG oral 00:00: daily - Tablet 00 Externa l Losartan Yes 50mg Take 50 mg Krzysztof sey Potassium 8-10 by mouth 2 Seyb old 50 MG oral 00:00: times - Tablet 00 daily Externa l losartan Yes 50mg QD Take 1 Methodi (COZAAR) 50 8-10 tablet (50 st MG tablet 00:00: mg total) Hos cherrie 00 by mouth l daily. Losartan 2022- No 50mg Take 50 mg Ke lsey Potassium 8-10 02-02 by mouth 2 Sey bold 50 MG oral 00:00: 00:00 times - Tablet 00 :00 daily Externa l levothyroxi Yes 50ug Take 1 Meth huma ne 6-01 tablet (50 st (SYNTHROID) 00:00: mcg total) Hospita 50 mcg 00 by mouth. l tablet Sildenafil Sildenafil No 1{table Sildenafil Citrate 100 Citrate 100 6-11 t_as_ne Citrate MG MG 00:00: eded} 100 MG 00 Sildenafil Sildenafil No 1{table Sildenafil Citrate 100 Citrate 100 6-11 t_as_ne Citrate MG MG 00:00: eded} 100 MG 00 Sildenafil Sildenafil No 1{table Sildenafil Citrate 100 Citrate 100 6-11 t_as_ne Citrate MG MG 00:00: eded} 100 MG 00 Sildenafil Sildenafil No 1{table Sildenafil Citrate 100 Citrate 100 6-11 t_as_ne Citrate MG MG 00:00: eded} 100 MG 00 Sildenafil Sildenafil No 1{table Sildenafil Citrate 100 Citrate 100 6-11 t_as_ne Citrate MG MG 00:00: eded} 100 MG 00 Sildenafil Sildenafil No 1{table Sildenafil Citrate 100 Citrate 100 6-11 t_as_ne Citrate MG MG 00:00: eded} 100 MG 00 Clopidogrel Clopidogrel Yes Na Knight 1 tablet Common Bisulfate Bisulfate 09-20 Spiri t 00:00: - [facility]I 00 [facility] cetirizine Yes 10mg Take 10 mg U nivers (ZYRTEC) 10 8-23 by mouth ity of mg tablet 15:09: daily. [address] Branch Cholecalcif Yes Take by Uni vers irma, 8- mouth. ity of Vitamin D3, 15:09: [place] (VITAMIN [address] [place] [address] D3) 5,000 Branch unit tablet pantoprazol Yes 40mg Take 40 mg Univers e 40 mg EC 8-23 by mouth ity o f tablet 15:09: daily. [address] aspirin Yes 81mg Take 81 mg Univ ers (ADULT LOW 8-23 by mouth ity o f DOSE 15:09: daily. [place] ASPIRIN) 81 14 Medical mg EC Branch tablet foLIC acid Yes 1mg Take 1 mg Un blane 1 mg tablet 8-23 by mouth ity of 15:09: daily. [address] Branch atorvastati Yes 80mg Take 80 mg Univers n 40 mg 8-23 by mouth ity of tablet 15:09: at [place] [address] bedtime. Medical Branch losartan 25 Yes 25mg Take 25 mg Univers mg tablet 8-23 by mouth ity of 15:09: daily. [address] Branch levothyroxi Yes 50ug Take 50 Uni vers ne 50 mcg 8-23 mcg by ity of tablet 15:09: mouth [place] [address] every Medical morning. Branch lovastatin Yes 20mg Take 20 mg U nivers 20 mg 8-23 by mouth ity of tablet 15:09: at [place] [address] bedtime. Medical Branch cetirizine Yes 10mg Take 10 mg U nivers (ZYRTEC) 10 8-23 by mouth ity of mg tablet 15:09: daily. [place] [address] Medical Branch Cholecalcif Yes Take by Uni vers irma, 8-23 mouth. ity of Vitamin D3, 15:09: [place] (VITAMIN 14 Medical D3) 5,000 Branch unit tablet pantoprazol Yes 40mg Take 40 mg Univers e 40 mg EC 8-23 by mouth ity o f tablet 15:09: daily. [place] [address] Medical Branch aspirin Yes 81mg Take 81 mg Univ ers (ADULT LOW 8-23 by mouth ity o f DOSE 15:09: daily. [place] ASPIRIN) 81 14 Medical mg EC Branch tablet foLIC acid Yes 1mg Take 1 mg Un blane 1 mg tablet 8-23 by mouth ity of 15:09: daily. [place] [address] Medical Branch atorvastati Yes 80mg Take 80 mg Univers n 40 mg 8-23 by mouth ity of tablet 15:09: at [place] [address] bedtime. Medical Branch losartan 25 Yes 25mg Take 25 mg Univers mg tablet 8-23 by mouth ity of 15:09: daily. [place] [address] Medical Branch levothyroxi Yes 50ug Take 50 Uni vers ne 50 mcg 8-23 mcg by ity of tablet 15:09: mouth [place] [address] every Medical morning. Branch lovastatin Yes 20mg Take 20 mg U nivers 20 mg 8-23 by mouth ity of tablet 15:09: at [place] [address] bedtime. Medical Branch cetirizine Yes 10mg Take 10 mg U nivers (ZYRTEC) 10 8-23 by mouth ity of mg tablet 15:09: daily. [place] [address] Medical Branch Cholecalcif Yes Take by Uni vers irma, 8-23 mouth. ity of Vitamin D3, 15:09: [place] (VITAMIN 14 Medical D3) 5,000 Branch unit tablet pantoprazol Yes 40mg Take 40 mg Univers e 40 mg EC 8-23 by mouth ity o f tablet 15:09: daily. [place] [address] Medical Branch aspirin Yes 81mg Take 81 mg Univ ers (ADULT LOW 8-23 by mouth ity o f DOSE 15:09: daily. [place] ASPIRIN) 81 14 Medical mg EC Branch tablet foLIC acid Yes 1mg Take 1 mg Un blane 1 mg tablet 8-23 by mouth ity of 15:09: daily. [place] [address] Medical Branch atorvastati Yes 80mg Take 80 mg Univers n 40 mg 8-23 by mouth ity of tablet 15:09: at [place] [address] bedtime. Medical Branch losartan 25 Yes 25mg Take 25 mg Univers mg tablet 8-23 by mouth ity of 15:09: daily. [place] [address] Medical Branch levothyroxi Yes 50ug Take 50 Uni vers ne 50 mcg 8-23 mcg by ity of tablet 15:09: mouth [place] [address] every Medical morning. Branch lovastatin Yes 20mg Take 20 mg U nivers 20 mg 8-23 by mouth ity of tablet 15:09: at [place] [address] bedtime. Medical Branch cetirizine Yes 10mg Take 10 mg U nivers (ZYRTEC) 10 8-23 by mouth ity of mg tablet 15:09: daily. [place] [address] Medical Branch Cholecalcif Yes Take by Uni vers irma, 8-23 mouth. ity of Vitamin D3, 15:09: [place] (VITAMIN [address] [place] [address] D3) 5,000 Branch unit tablet pantoprazol Yes 40mg Take 40 mg Univers e 40 mg EC 8-23 by mouth ity o f tablet 15:09: daily. [place] [address] Medical Branch aspirin Yes 81mg Take 81 mg Univ ers (ADULT LOW 8-23 by mouth ity o f DOSE 15:09: daily. [place] ASPIRIN) 81 14 Medical mg EC Branch tablet foLIC acid Yes 1mg Take 1 mg Un blane 1 mg tablet 8-23 by mouth ity of 15:09: daily. [place] [address] Medical Branch atorvastati Yes 80mg Take 80 mg Univers n 40 mg 8-23 by mouth ity of tablet 15:09: at [place] [address] bedtime. Medical Branch losartan 25 Yes 25mg Take 25 mg Univers mg tablet 8-23 by mouth ity of 15:09: daily. [place] [address] Medical Branch levothyroxi Yes 50ug Take 50 Uni vers ne 50 mcg 8-23 mcg by ity of tablet 15:09: mouth [place] [address] every Medical morning. Branch lovastatin Yes 20mg Take 20 mg U nivers 20 mg 8-23 by mouth ity of tablet 15:09: at [place] [address] bedtime. Medical Branch cetirizine Yes 10mg Take 10 mg U nivers (ZYRTEC) 10 8-23 by mouth ity of mg tablet 15:09: daily. [place] [address] Medical Branch Cholecalcif Yes Take by Uni vers irma, 8-23 mouth. ity of Vitamin D3, 15:09: [place] (VITAMIN [address] [place] [address] D3) 5,000 [place] unit tablet pantoprazol Yes 40mg Take 40 mg Univers e 40 mg EC 8-23 by mouth ity o f tablet 15:09: daily. [place] [address] Medical Branch aspirin Yes 81mg Take 81 mg Univ ers (ADULT LOW 8-23 by mouth ity o f DOSE 15:09: daily. [place] ASPIRIN) 81 14 Medical mg EC Branch tablet foLIC acid Yes 1mg Take 1 mg Un blane 1 mg tablet 8-23 by mouth ity of 15:09: daily. [place] [address] Medical Branch atorvastati Yes 80mg Take 80 mg Univers n 40 mg 8-23 by mouth ity of tablet 15:09: at [place] [address] bedtime. Medical Branch losartan 25 Yes 25mg Take 25 mg Univers mg tablet 8-23 by mouth ity of 15:09: daily. [place] [address] Medical Branch levothyroxi Yes 50ug Take 50 Uni vers ne 50 mcg 8-23 mcg by ity of tablet 15:09: mouth [place] [address] every Medical morning. Branch lovastatin Yes 20mg Take 20 mg U nivers 20 mg 8-23 by mouth ity of tablet 15:09: at [place] [address] bedtime. Medical Branch cetirizine Yes 10mg Take 10 mg U nivers (ZYRTEC) 10 8-23 by mouth ity of mg tablet 15:09: daily. [place] [address] Medical Branch Cholecalcif Yes Take by Uni vers irma, 8-23 mouth. ity of Vitamin D3, 15:09: [place] (VITAMIN 14 Medical D3) 5,000 Branch unit tablet pantoprazol Yes 40mg Take 40 mg Univers e 40 mg EC 8-23 by mouth ity o f tablet 15:09: daily. [place] [address] Medical Branch aspirin Yes 81mg Take 81 mg Univ ers (ADULT LOW 8-23 by mouth ity o f DOSE 15:09: daily. [place] ASPIRIN) 81 14 Medical mg EC Branch tablet foLIC acid Yes 1mg Take 1 mg Un blane 1 mg tablet 8-23 by mouth ity of 15:09: daily. [place] [address] Medical Branch atorvastati Yes 80mg Take 80 mg Univers n 40 mg 8-23 by mouth ity of tablet 15:09: at [place] [address] bedtime. Medical Branch losartan 25 Yes 25mg Take 25 mg Univers mg tablet 8-23 by mouth ity of 15:09: daily. [place] [address] Medical Branch levothyroxi Yes 50ug Take 50 Uni vers ne 50 mcg 8-23 mcg by ity of tablet 15:09: mouth [place] [address] every Medical morning. Branch lovastatin Yes 20mg Take 20 mg U nivers 20 mg 8-23 by mouth ity of tablet 15:09: at [place] [address] bedtime. Medical Branch cetirizine Yes 10mg Take 10 mg U nivers (ZYRTEC) 10 8-23 by mouth ity of mg tablet 15:09: daily. [place] [address] Medical Branch Cholecalcif Yes Take by Uni vers irma, 8-23 mouth. ity of Vitamin D3, 15:09: [place] (VITAMIN 14 Medical D3) 5,000 Branch unit tablet pantoprazol Yes 40mg Take 40 mg Univers e 40 mg EC 8-23 by mouth ity o f tablet 15:09: daily. [place] [address] Medical Branch aspirin Yes 81mg Take 81 mg Univ ers (ADULT LOW 8-23 by mouth ity o f DOSE 15:09: daily. [place] ASPIRIN) 81 14 Medical mg EC Branch tablet foLIC acid Yes 1mg Take 1 mg Un blane 1 mg tablet 8-23 by mouth ity of 15:09: daily. [place] [address] Medical Branch atorvastati Yes 80mg Take 80 mg Univers n 40 mg 8-23 by mouth ity of tablet 15:09: at [place] [address] bedtime. Medical Branch losartan 25 Yes 25mg Take 25 mg Univers mg tablet 8-23 by mouth ity of 15:09: daily. [place] [address] Medical Branch levothyroxi Yes 50ug Take 50 Uni vers ne 50 mcg 8-23 mcg by ity of tablet 15:09: mouth [place] [address] every Medical morning. Branch lovastatin Yes 20mg Take 20 mg U nivers 20 mg 8-23 by mouth ity of tablet 15:09: at [place] [address] bedtime. Medical Branch cetirizine Yes 10mg Take 10 mg U nivers (ZYRTEC) 10 8-23 by mouth ity of mg tablet 15:09: daily. [place] [address] Medical Branch Cholecalcif Yes Take by Uni vers irma, 8-23 mouth. ity of Vitamin D3, 15:09: [place] (VITAMIN [address] [place] [address] D3) 5,000 Branch unit tablet pantoprazol Yes 40mg Take 40 mg Univers e 40 mg EC 8-23 by mouth ity o f tablet 15:09: daily. [place] [address] Medical Branch aspirin Yes 81mg Take 81 mg Univ ers (ADULT LOW 8-23 by mouth ity o f DOSE 15:09: daily. [place] ASPIRIN) 81 14 Medical mg EC Branch tablet foLIC acid Yes 1mg Take 1 mg Un blane 1 mg tablet 8-23 by mouth ity of 15:09: daily. [place] [address] Medical Branch atorvastati Yes 80mg Take 80 mg Univers n 40 mg 8-23 by mouth ity of tablet 15:09: at [place] [address] bedtime. Medical Branch losartan 25 Yes 25mg Take 25 mg Univers mg tablet 8-23 by mouth ity of 15:09: daily. [place] [address] Medical Branch levothyroxi Yes 50ug Take 50 Uni vers ne 50 mcg 8-23 mcg by ity of tablet 15:09: mouth [place] [address] every Medical morning. Branch lovastatin Yes 20mg Take 20 mg U nivers 20 mg 8-23 by mouth ity of tablet 15:09: at [place] [address] bedtime. Medical Branch cetirizine Yes 10mg Take 10 mg U nivers (ZYRTEC) 10 8-23 by mouth ity of mg tablet 15:09: daily. [place] [address] Medical Branch Cholecalcif Yes Take by Uni vers irma, 8- mouth. ity of Vitamin D3, 15:09: [place] (VITAMIN [address] [place] [address] D3) 5,000 Branch unit tablet pantoprazol Yes 40mg Take 40 mg Univers e 40 mg EC 8-23 by mouth ity o f tablet 15:09: daily. [place] [address] Medical Branch aspirin Yes 81mg Take 81 mg Univ ers (ADULT LOW 8-23 by mouth ity o f DOSE 15:09: daily. [place] ASPIRIN) 81 14 Medical mg EC Branch tablet foLIC acid Yes 1mg Take 1 mg Un blane 1 mg tablet 823 by mouth ity of 15:09: daily. [place] [address] Medical Branch atorvastati Yes 80mg Take 80 mg Univers n 40 mg 8-23 by mouth ity of tablet 15:09: at [place] [address] bedtime. Medical Branch losartan 25 Yes 25mg Take 25 mg Univers mg tablet 8-23 by mouth ity of 15:09: daily. [place] [address] Medical Branch levothyroxi Yes 50ug Take 50 Uni vers ne 50 mcg 8-23 mcg by ity of tablet 15:09: mouth [place] [address] every Medical morning. Branch lovastatin Yes 20mg Take 20 mg U nivers 20 mg 8-23 by mouth ity of tablet 15:09: at [place] [address] bedtime. Medical Branch FENTanyl PF Yes 25ug 25 mcg, Uni vers (SUBLIMAZE 8-23 Slow IV ity of (PF)) 14:04: Push, [place] injection 02 Q5MIN PRN, Medi latasha 25 mcg 4 doses, Branch Starting Wed11/11/18 at 0904, Until Discontinu ed, Routine, Pain (scale 7-10), PACU FENTanyl PF Yes 25ug 25 mcg, Uni vers (SUBLIMAZE 8-23 Slow IV ity of (PF)) 14:04: Push, [place] injection 02 Q5MIN PRN, Medi latasha 25 mcg 4 doses, Branch Starting Wed11/11/18 at 0904, Until Discontinu ed, Routine, Pain (scale 4-6), PACU morpHINE Yes 2mg 2 mg, Slow Uni vers injection 2 8-23 IV Push, ity of mg 14:04: Q5MIN PRN, [place] 02 5 doses, Medical Starting Branch Wed11/11/18 at 0904, Until Discontinu ed, Routine, Pain (scale 4-6), PACU ondansetron 2019- Yes 4mg 4 mg, Slow Univers (ZOFRAN 11-11 IV Push, ity of (PF)) 14:04: PRN, 1 [place] injection 4 02 dose, Medical mg Starting Branch Wed11/11/18 at 0904, Until Discontinu ed, Routine, Nausea and Vomiting (N/V), PACU ondansetron 2019- No ONCE INTRA Univers (ZOFRAN 11-11 PROCEDURE, ity o f (PF)) 13:45: 14:03 Starting [place] injection 00 :16 Fri Medical 11/11/18 at Branch 08, Until Wed11/11/18 at 0903, Routine, Intra-op ondansetron 2019- No ONCE INTRA Univers (ZOFRAN 11-11 PROCEDURE, ity o f (PF)) 13:45: 14:03 Starting [place] injection 00 :16 Fri Medical 11/11/18 at Branch 08, Until Wed11/11/18 at 0903, Routine, Intra-op lidocaine 2019- No ONCE INTRA U nivers 1% 11-11 PROCEDURE, ity of (XYLOCAINE) 13:07: 14:03 [place] 100 mg/10 00 :16 Fri Medical mL (1 %) 11/11/18 at [facility] h injection 0807, Until Wed11/11/18 at 0903, Routine, Intra-op propofol 2018- 2019- No ONCE INTRA Un blane injection 11-11 PROCEDURE, ity of 13:07: 14:03 Starting [place] 00 :16 Fri Medical 11/11/18 at Branch 08, Until Wed11/11/18 at 0903, Routine, Intra-op lidocaine 2018- 2019- No ONCE INTRA U nivers 1% 11-11 PROCEDURE, ity of (XYLOCAINE) 13:07: 14:03 [place] 100 mg/10 00 :16 Fri Medical mL (1 %) 11/11/18 at [facility] h injection 0807, Until Wed11/11/18 at 0903, Routine, Intra-op propofol 2018- 2019- No ONCE INTRA Un blane injection 11-11 PROCEDURE, ity of 13:07: 14:03 Starting [place] 00 :16 Wed Medical 11/11/18 at Branch 0807, Until Wed11/11/18 at 09, Routine, Intra-op lidocaine 2019-0 Yes PRN, Univers 1% (PF) 11-11 Starting ity of (XYLOCAINE) 13:05: Fri [place] injection 00 11/11/18 at [facility] 0805, Branch Until Discontinu ed, Routine, Intra-op bupivacaine 2019-0 Yes PRN, Univer s (preserv 11-11 Starting ity of free) 0.5% 13:05: Fri [place] (SENSORCAIN 00 11/11/18 at [facility]) 0.5 08, Branch % (5 mg/mL) Until injection Discontinu ed, Routine, Intra-op acetaminoph 2018- 2019- No Administer Univers en ADULT 11-11 over 15 ity of (OFIRMEV) 13:05: 14:03 Minutes, [place] injection 00 :16 ONCE INTRA Medi latasha PROCEDURE, Branch Starting Wed11/11/18 at 0805, Until Wed11/11/18 at 0903, Routine, Intra-op acetaminoph 2019-0 2019- No Administer Univers en ADULT 11-11 over 15 ity of (OFIRMEV) 13:05: 14:03 Minutes, [place] as injection 00 :16 ONCE INTRA Medi latasha PROCEDURE, Branch Starting Wed11/11/18 at 0805, Until Wed11/11/18 at 0903, Routine, Intra-op FENTanyl PF 2019-0 2019- No ONCE INTRA Univers (SUBLIMAZE 11-11 PROCEDURE, it y of (PF)) 12:57: 14:03 Starting [place] injection 00 :16 Wed Medical 11/11/18 at Branch 0757, Until Wed11/11/18 at 0903, Routine, Intra-op FENTanyl PF 2019-0 2019- No ONCE INTRA Univers (SUBLIMAZE 11-11 PROCEDURE, it y of (PF)) 12:57: 14:03 Starting [place] injection 00 :16 Wed Medical 11/11/18 at Branch 0757, Until Wed11/11/18 at 0903, Routine, Intra-op sodium 2019-0 Yes PRN, Univers chloride 11-11 Starting ity of 0.9 % 12:53: Fri [place] irrigation 00 11/11/18 at Med ical solution 0753, Branch Until Discontinu ed, Intra-op midazolam 2018-0 2019- No ONCE INTRA U nivers (VERSED) 11-11 PROCEDURE, ity of injection 12:53: 14:03 Starting [place] 00 :16 Fri Medical 11/11/18 at Branch 0753, Until Wed11/11/18 at 0903, Routine, Intra-op midazolam 2018-0 2019- No ONCE INTRA U nivers (VERSED) 11-11 PROCEDURE, ity of injection 12:53: 14:03 Starting [place] 00 :16 Fri Medical 11/11/18 at Branch 0753, Until Wed11/11/18 at 0903, Routine, Intra-op lactated 2019-0 Yes 1000mL at 50 Univer s ringers IV 8-23 mL/hr, ity of infusion 12:15: 1,000 [place] 1[place]000 mL 00 IV Medical Infusion, Branch CONTINUOUS , Starting Wed11/11/18 at 0715, Until Discontinu ed, Routine, DSU Pre-op lactated 2019-0 Yes 1000mL at 50 Univer s ringers IV 8-23 mL/hr, ity of infusion 12:15: 1,000 mL, [place] 1,000 mL 00 IV Medical Infusion, Branch CONTINUOUS , Starting Wed11/11/18 at 0715, Until Discontinu ed, Routine, DSU Pre-op lactated 2019-0 2019- No 1000mL at 50 Unive rs ringers IV 8- 08-23 mL/hr, ity of infusion 12:15: 17:09 1,000 mL, [place] as 1,000 mL 00 :14 IV Medical Infusion, Branch CONTINUOUS , Starting Wed11/11/18 at 0715, Until Wed11/11/18 at 1209, Routine, DSU Pre-op lovastatin 2019-0 Yes 20mg Take 20 mg U nivers 20 mg 4-09 by mouth ity of tablet 18:30: at [place] [address] bedtime. Medical Branch cetirizine 2018-0 Yes 10mg Take 10 mg U nivers (ZYRTEC) 10 4-09 by mouth ity of mg tablet 18:30: daily. [place] [address] Medical Branch Cholecalcif 2019-0 Yes Take by Uni vers irma, 4-09 mouth. ity of Vitamin D3, 18:30: [place] (VITAMIN 16 Medical D3) 5,000 Branch unit tablet pantoprazol Yes 40mg Take 40 mg Univers e 40 mg EC -09 by mouth ity o f tablet 18:30: daily. [place] [address] Medical Branch aspirin Yes 81mg Take 81 mg Univ ers (ADULT LOW -09 by mouth ity o f DOSE 18:30: daily. [place] ASPIRIN) 81 16 Medical mg EC Branch tablet foLIC acid Yes 1mg Take 1 mg Un blane 1 mg tablet -09 by mouth ity of 18:30: daily. [address] Branch atorvastati Yes 80mg Take 80 mg Univers n 40 mg -09 by mouth ity of tablet 18:30: at [place] [address] bedtime. Medical Branch losartan 25 Yes 25mg Take 25 mg Univers mg tablet -09 by mouth ity of 18:30: daily. [place] [address] Medical Branch levothyroxi Yes 50ug Take 50 Uni vers ne 50 mcg -09 mcg by ity of tablet 18:30: mouth [place] [address] every Medical morning. Branch lovastatin Yes 20mg Take 20 mg U nivers 20 mg -09 by mouth ity of tablet 18:30: at [place] [address] bedtime. Medical Branch cetirizine Yes 10mg Take 10 mg U nivers (ZYRTEC) 10 09 by mouth ity of mg tablet 18:30: daily. [address] Branch Cholecalcif Yes Take by Uni vers irma, -09 mouth. ity of Vitamin D3, 18:30: [place] (VITAMIN 16 Medical D3) 5,000 Branch unit tablet pantoprazol Yes 40mg Take 40 mg Univers e 40 mg EC -09 by mouth ity o f tablet 18:30: daily. [address] aspirin Yes 81mg Take 81 mg Univ ers (ADULT LOW -09 by mouth ity o f DOSE 18:30: daily. [place] ASPIRIN) 81 16 Medical mg EC Branch tablet foLIC acid Yes 1mg Take 1 mg Un blane 1 mg tablet -09 by mouth ity of 18:30: daily. [address] atorvastati Yes 80mg Take 80 mg Univers n 40 mg 4-09 by mouth ity of tablet 18:30: at [place] [address] bedtime. Medical Branch losartan 25 Yes 25mg Take 25 mg Univers mg tablet -09 by mouth ity of 18:30: daily. [place] [address] Medical Branch levothyroxi Yes 50ug Take 50 Uni vers ne 50 mcg 4-09 mcg by ity of tablet 18:30: mouth [place] [address] every Medical morning. Branch lovastatin Yes 20mg Take 20 mg U nivers 20 mg 4-09 by mouth ity of tablet 18:30: at [place] [address] bedtime. Medical Branch cetirizine Yes 10mg Take 10 mg U nivers (ZYRTEC) 10 4-09 by mouth ity of mg tablet 18:30: daily. [place] [address] Medical Branch Cholecalcif Yes Take by Uni vers irma, -09 mouth. ity of Vitamin D3, 18:30: [place] (VITAMIN [address] [place] [address] D3) 5,000 [place] unit tablet pantoprazol Yes 40mg Take 40 mg Univers e 40 mg EC 09 by mouth ity o f tablet 18:30: daily. [place] [address] Medical Branch aspirin Yes 81mg Take 81 mg Univ ers (ADULT LOW 09 by mouth ity o f DOSE 18:30: daily. [place] ASPIRIN) 81 16 Medical mg EC Branch tablet foLIC acid Yes 1mg Take 1 mg Un blane 1 mg tablet 09 by mouth ity of 18:30: daily. [place] [address] Medical Branch atorvastati Yes 80mg Take 80 mg Univers n 40 mg -09 by mouth ity of tablet 18:30: at [place] [address] bedtime. Medical Branch losartan 25 Yes 25mg Take 25 mg Univers mg tablet -09 by mouth ity of 18:30: daily. [place] [address] Medical Branch levothyroxi Yes 50ug Take 50 Uni vers ne 50 mcg 4-09 mcg by ity of tablet 18:30: mouth [place] [address] every Medical morning. Branch Kenalog Kenalog No 40mg Common (Triamcinol (Triamcinol 06-23 S pirit one) one) 00:00: - [facility] 00 [facility] Dexamethaso Dexamethaso No 10mg Common ne ne 4-04 Spirit 00:00: - [facility] ramipril 2018-0 Yes Univers 2.5 mg 2-16 ity of capsule 00:00: [place] [facility] Branch ramipril 2018-0 Yes Univers 2.5 mg 2-16 ity of capsule 00:00: Medical Branch ramipril 2018-0 Yes Univers 2.5 mg 2-16 ity of capsule 00:00: [place] [facility] ramipril 2018-0 Yes Univers 2.5 mg 2-16 ity of capsule 00:00: Medical Branch ramipril 2018-0 Yes Univers 2.5 mg 2-16 ity of capsule 00:00: [place] [facility] ramipril 2018-0 Yes Univers 2.5 mg 2-16 ity of capsule 00:00: [place] [facility] ramipril 2018-0 Yes Univers 2.5 mg 2-16 ity of capsule 00:00: [place] [facility] ramipril 2018-0 Yes Univers 2.5 mg 2-16 ity of capsule 00:00: [place] [facility] ramipril 2018-0 Yes Univers 2.5 mg 2-16 ity of capsule 00:00: [place] [facility] ramipril 2018-0 Yes Univers 2.5 mg 2-16 ity of capsule 00:00: [place] [facility] ramipril 2018-0 Yes Univers 2.5 mg 2-16 ity of capsule 00:00: [place] [facility] ramipril 2018-0 Yes Univers 2.5 mg 2-16 ity of capsule 00:00: [place] [facility] ASA ASA 2018-0 Yes Na Knight 1 tab Common 2-02 Spirit 00:00: - [facility] triamcinolo 2017-0 Yes Apply to Un blane ne 2-20 area(s) 2 ity of acetonide 00:00: (two) [place] 0.1 % cream 00 times Medical daily. Branch triamcinolo 2017-0 Yes Apply to Un blane ne 2-20 area(s) 2 ity of acetonide 00:00: (two) [place] 0.1 % cream 00 times Medical daily. Branch triamcinolo 2017-0 Yes Apply to Un blane ne 2-20 area(s) 2 ity of acetonide 00:00: (two) [place] 0.1 % cream 00 times Medical daily. Branch triamcinolo 2017-0 Yes Apply to Un blane ne 2-20 area(s) 2 ity of acetonide 00:00: (two) [place] 0.1 % cream 00 times Medical daily. Branch triamcinolo 2017-0 Yes Apply to Un blane ne 2-20 area(s) 2 ity of acetonide 00:00: (two) [place] 0.1 % cream 00 times Medical daily. Branch triamcinolo 2017-0 Yes Apply to Un blane ne 2-20 area(s) 2 ity of acetonide 00:00: (two) [place] 0.1 % cream 00 times Medical daily. Branch triamcinolo 2017-0 Yes Apply to Un blane ne 2-20 area(s) 2 ity of acetonide 00:00: (two) [place] 0.1 % cream 00 times Medical daily. Branch triamcinolo 2017-0 Yes Apply to Un blane ne 2-20 area(s) 2 ity of acetonide 00:00: (two) [place] 0.1 % cream 00 times Medical daily. Branch triamcinolo 2017-0 Yes Apply to Un blane ne 2-20 area(s) 2 ity of acetonide 00:00: (two) [place] 0.1 % cream 00 times Medical daily. Branch triamcinolo 2017-0 Yes Apply to Un blane ne 2-20 area(s) 2 ity of acetonide 00:00: (two) [place] 0.1 % cream 00 times Medical daily. Branch triamcinolo 2017-0 Yes Apply to Un blane ne 2-20 area(s) 2 ity of acetonide 00:00: (two) [place] 0.1 % cream 00 times Medical daily. Branch triamcinolo 2017-0 Yes Apply to Un blane ne 2-20 area(s) 2 ity of acetonide 00:00: (two) [place] 0.1 % cream 00 times Medical daily. Branch clopidogrel 2014-0 Yes Univer s (PLAVIX) 75 6-16 ity of mg tablet 00:00: [place] 00 [facility] Branch clopidogrel 2014-0 Yes Univer s (PLAVIX) 75 6-16 ity of mg tablet 00:00: [place] Medical Branch clopidogrel 2014-0 Yes Univer s (PLAVIX) 75 6-16 ity of mg tablet 00:00: [place] 00 Medical Branch clopidogrel 2014-0 Yes Univer s (PLAVIX) 75 6-16 ity of mg tablet 00:00: [place] [facility] clopidogrel 2014-0 Yes Univer s (PLAVIX) 75 6-16 ity of mg tablet 00:00: [place] [facility] clopidogrel 2014-0 Yes Univer s (PLAVIX) 75 6-16 ity of mg tablet 00:00: [place] [facility] clopidogrel 2014-0 Yes Univer s (PLAVIX) 75 6-16 ity of mg tablet 00:00: [place] [facility] clopidogrel 2014-0 Yes Univer s (PLAVIX) 75 6-16 ity of mg tablet 00:00: [place] [facility] clopidogrel 2014-0 Yes Univer s (PLAVIX) 75 6-16 ity of mg tablet 00:00: [place] [facility] clopidogrel 2014-0 Yes Univer s (PLAVIX) 75 6-16 ity of mg tablet 00:00: [place] [facility] clopidogrel 2014-0 Yes Univer s (PLAVIX) 75 6-16 ity of mg tablet 00:00: [place] [facility] clopidogrel 2014-0 Yes Univer s (PLAVIX) 75 6-16 ity of mg tablet 00:00: [place] [facility] clopidogreL 2014-0 Yes clopidogre Methodi (PLAVIX) 75 6-[address] mg tablet 00:00: tablet Hospit [facility] 00 l CRESTOR 10 Yes 10mg Take 10 mg U nivers mg tablet 6-04 by mouth ity of 00:00: at [place] [address] bedtime. Medical Branch CRESTOR 10 Yes 10mg Take 10 mg U nivers mg tablet 6-04 by mouth ity of 00:00: at [place] [address] bedtime. Medical Branch CRESTOR 10 Yes 10mg Take 10 mg U nivers mg tablet 6-04 by mouth ity of 00:00: at [place] [address] bedtime. Medical Branch CRESTOR 10 Yes 10mg Take 10 mg U nivers mg tablet 6-04 by mouth ity of 00:00: at [place] [address] bedtime. Medical Branch CRESTOR 10 Yes 10mg Take 10 mg U nivers mg tablet 6-04 by mouth ity of 00:00: at [place] [address] bedtime. Medical Branch CRESTOR 10 Yes 10mg Take 10 mg U nivers mg tablet 6-04 by mouth ity of 00:00: at [place] [address] bedtime. Medical Branch CRESTOR 10 Yes 10mg Take 10 mg U nivers mg tablet 6-04 by mouth ity of 00:00: at [place] [address] bedtime. Medical Branch CRESTOR 10 Yes 10mg Take 10 mg U nivers mg tablet 6-04 by mouth ity of 00:00: at [place] [address] bedtime. Medical Branch CRESTOR 10 Yes 10mg Take 10 mg U nivers mg tablet 6-04 by mouth ity of 00:00: at [place] [address] bedtime. Medical Branch CRESTOR 10 Yes 10mg Take 10 mg U nivers mg tablet 6-04 by mouth ity of 00:00: at [place] [address] bedtime. Medical Branch CRESTOR 10 Yes 10mg Take 10 mg U nivers mg tablet 6-04 by mouth ity of 00:00: at [place] [address] bedtime. Medical Branch CRESTOR 10 Yes 10mg Take 10 mg U nivers mg tablet 6-04 by mouth ity of 00:00: at [place] [address] bedtime. Medical Branch Multiple Multiple Yes Na Knight 1 tablet Common Vitamins Vitamins Spirit - [facility] clopidogrel clopidogrel Yes Na Knight 1 Common Spirit [facility] Protonix Protonix Yes Na Knight TAKE 1 Co mmon TABLET BY Spirit MOUTH - CHI EVERY DAY [facility] Losartan Losartan Yes Na Knight TAKE 1 Co mmon Potassium Potassium TABLET BY Spirit MOUTH - CHI EVERY DAY [facility] Levothyroxi Levothyroxi Yes Na Knight 1 tablet Common ne Sodium ne Sodium on an Spir it empty - [facility]I stomach in [facility] Atorvastati Atorvastati Yes Na Knight 1 tablet Common n Calcium n Calcium Spiri t - [facility] Atorvastati Atorvastati No 1{table QD Atorvastat n Calcium n Calcium t} in Calcium 20 MG 20 MG 20 MG Clopidogrel Clopidogrel No 1{table QD Clopidogre Bisulfate Bisulfate t} l 75 MG 75 MG Bisulfate 75 MG Losartan Losartan No 1{table QD Losartan Potassium Potassium t} Potassium 50 MG 50 MG 50 MG Levothyroxi Levothyroxi No QD Levothyrox ne Sodium ne Sodium ine Sodium 50 MCG 50 MCG 50 MCG Ferrous Ferrous No 1{table BID Ferrous Sulfate 325 Sulfate 325 t} Sulfate (65 Fe) MG (65 Fe) MG 325 (65 Fe) MG Protonix 40 Protonix 40 No Protonix MG MG 40 MG Losartan Losartan No Losartan Potassium Potassium Potassium 50 MG 50 MG 50 MG Atorvastati Atorvastati No 1{table QD Atorvastat n Calcium n Calcium t} in Calcium 20 MG 20 MG 20 MG Levothyroxi Levothyroxi No QD Levothyrox ne Sodium ne Sodium ine Sodium 50 MCG 50 MCG 50 MCG Multiple Multiple No 1{table QD Multiple Vitamins - Vitamins - t} Vitamins - clopidogrel clopidogrel No QD clopidogre 75 mg 75 mg l 75 mg ASA ASA No ASA Atorvastati Atorvastati No 1{table QD Atorvastat n Calcium n Calcium t} in Calcium 20 MG 20 MG 20 MG Clopidogrel Clopidogrel No 1{table QD Clopidogre Bisulfate Bisulfate t} l 75 MG 75 MG Bisulfate 75 MG Losartan Losartan No 1{table QD Losartan Potassium Potassium t} Potassium 50 MG 50 MG 50 MG Levothyroxi Levothyroxi No QD Levothyrox ne Sodium ne Sodium ine Sodium 50 MCG 50 MCG 50 MCG Ferrous Ferrous No 1{table BID Ferrous Sulfate 325 Sulfate 325 t} Sulfate (65 Fe) MG (65 Fe) MG 325 (65 Fe) MG Protonix 40 Protonix 40 No Protonix MG MG 40 MG Losartan Losartan No Losartan Potassium Potassium Potassium 50 MG 50 MG 50 MG Atorvastati Atorvastati No 1{table QD Atorvastat n Calcium n Calcium t} in Calcium 20 MG 20 MG 20 MG Levothyroxi Levothyroxi No QD Levothyrox ne Sodium ne Sodium ine Sodium 50 MCG 50 MCG 50 MCG Multiple Multiple No 1{table QD Multiple Vitamins - Vitamins - t} Vitamins - clopidogrel clopidogrel No QD clopidogre 75 mg 75 mg l 75 mg ASA ASA No ASA Levothyroxi Levothyroxi No QD Levothyrox ne Sodium ne Sodium ine Sodium 50 MCG 50 MCG 50 MCG Levothyroxi Levothyroxi No QD Levothyrox ne Sodium ne Sodium ine Sodium 50 MCG 50 MCG 50 MCG clopidogrel clopidogrel No QD clopidogre 75 mg 75 mg l 75 mg Multiple Multiple No 1{table QD Multiple Vitamins - Vitamins - t} Vitamins - Protonix 40 Protonix 40 No Protonix MG MG 40 MG Losartan Losartan No 1{table QD Losartan Potassium Potassium t} Potassium 50 MG 50 MG 50 MG Clopidogrel Clopidogrel No 1{table QD Clopidogre Bisulfate Bisulfate t} l 75 MG 75 MG Bisulfate 75 MG Losartan Losartan No Losartan Potassium Potassium Potassium 50 MG 50 MG 50 MG Ferrous Ferrous No 1{table BID Ferrous Sulfate 325 Sulfate 325 t} Sulfate (65 Fe) MG (65 Fe) MG 325 (65 Fe) MG Atorvastati Atorvastati No 1{table QD Atorvastat n Calcium n Calcium t} in Calcium 20 MG 20 MG 20 MG Atorvastati Atorvastati No 1{table QD Atorvastat n Calcium n Calcium t} in Calcium 20 MG 20 MG 20 MG ASA ASA No ASA Levothyroxi Levothyroxi No Levothyrox ne Sodium ne Sodium ine Sodium 50 MCG 50 MCG 50 MCG Atorvastati Atorvastati No Atorvastat n Calcium n Calcium in Calcium 20 MG 20 MG 20 MG Clopidogrel Clopidogrel No Clopidogre Bisulfate Bisulfate l 75 MG 75 MG Bisulfate 75 MG clopidogrel clopidogrel No QD clopidogre 75 mg 75 mg l 75 mg ASA ASA No ASA Pantoprazol Pantoprazol No Pantoprazo e Sodium 40 e Sodium 40 le Sodium MG MG 40 MG Ferrous Ferrous No 1{table BID Ferrous Sulfate 325 Sulfate 325 t} Sulfate (65 Fe) MG (65 Fe) MG 325 (65 Fe) MG Losartan Losartan No 1{table BID Losartan Potassium Potassium t} Potassium 50 MG 50 MG 50 MG Multiple Multiple No 1{table QD Multiple Vitamins - Vitamins - t} Vitamins - Pantoprazol Pantoprazol No Pantoprazo e Sodium 40 e Sodium 40 le Sodium MG MG 40 MG Levothyroxi Levothyroxi No Levothyrox ne Sodium ne Sodium ine Sodium 50 MCG 50 MCG 50 MCG Atorvastati Atorvastati No Atorvastat n Calcium n Calcium in Calcium 20 MG 20 MG 20 MG Ferrous Ferrous No 1{table BID Ferrous Sulfate 325 Sulfate 325 t} Sulfate (65 Fe) MG (65 Fe) MG 325 (65 Fe) MG clopidogrel clopidogrel No QD clopidogre 75 mg 75 mg l 75 mg Clopidogrel Clopidogrel No Clopidogre Bisulfate Bisulfate l 75 MG 75 MG Bisulfate 75 MG Multiple Multiple No 1{table QD Multiple Vitamins - Vitamins - t} Vitamins - Losartan Losartan No 1{table BID Losartan Potassium Potassium t} Potassium 50 MG 50 MG 50 MG ASA ASA No ASA Multiple Multiple No 1{table QD Multiple Vitamins - Vitamins - t} Vitamins - Losartan Losartan No Losartan Potassium Potassium Potassium 50 MG 50 MG 50 MG Atorvastati Atorvastati No 1{table QD Atorvastat n Calcium n Calcium t} in Calcium 20 MG 20 MG 20 MG ASA ASA No ASA Ferrous Ferrous No 1{table BID Ferrous Sulfate 325 Sulfate 325 t} Sulfate (65 Fe) MG (65 Fe) MG 325 (65 Fe) MG Clopidogrel Clopidogrel No 1{table QD Clopidogre Bisulfate Bisulfate t} l 75 MG 75 MG Bisulfate 75 MG Protonix 40 Protonix 40 No Protonix MG MG 40 MG clopidogrel clopidogrel No QD clopidogre 75 mg 75 mg l 75 mg Levothyroxi Levothyroxi No QD Levothyrox ne Sodium ne Sodium ine Sodium 50 MCG 50 MCG 50 MCG Losartan Losartan No 1{table QD Losartan Potassium Potassium t} Potassium 50 MG 50 MG 50 MG Clopidogrel Clopidogrel No 1{table QD Clopidogre Bisulfate Bisulfate t} l 75 MG 75 MG Bisulfate 75 MG Protonix 40 Protonix 40 No Protonix MG MG 40 MG ASA ASA No ASA Levothyroxi Levothyroxi No QD Levothyrox ne Sodium ne Sodium ine Sodium 50 MCG 50 MCG 50 MCG Multiple Multiple No 1{table QD Multiple Vitamins - Vitamins - t} Vitamins - Atorvastati Atorvastati No 1{table QD Atorvastat n Calcium n Calcium t} in Calcium 20 MG 20 MG 20 MG Ferrous Ferrous No 1{table BID Ferrous Sulfate 325 Sulfate 325 t} Sulfate (65 Fe) MG (65 Fe) MG 325 (65 Fe) MG Losartan Losartan No Losartan Potassium Potassium Potassium 50 MG 50 MG 50 MG clopidogrel clopidogrel No QD clopidogre 75 mg 75 mg l 75 mg Levothyroxi Levothyroxi No QD Levothyrox ne Sodium ne Sodium ine Sodium 50 MCG 50 MCG 50 MCG Protonix 40 Protonix 40 No Protonix MG MG 40 MG ASA ASA No ASA Losartan Losartan No Losartan Potassium Potassium Potassium 50 MG 50 MG 50 MG clopidogrel clopidogrel No QD clopidogre 75 mg 75 mg l 75 mg Atorvastati Atorvastati No 1{table QD Atorvastat n Calcium n Calcium t} in Calcium 20 MG 20 MG 20 MG Ferrous Ferrous No 1{table BID Ferrous Sulfate 325 Sulfate 325 t} Sulfate (65 Fe) MG (65 Fe) MG 325 (65 Fe) MG Multiple Multiple No 1{table QD Multiple Vitamins - Vitamins - t} Vitamins - Clopidogrel Clopidogrel No 1{table QD Clopidogre Bisulfate Bisulfate t} l 75 MG 75 MG Bisulfate 75 MG Immunizations Ordered Immunization Filled Immunization Date Status Commen ts Source Name Name Corrina WALKERIDOdessa WALKERID-Joey 2021-05-21 Completed Co [facility]mon Spirit - Vaccine (Low Dose Vaccine (Low Dose 14:48:00 [facility]) Booster) [facility] Covid19 Vaccine 2021-05-21 Completed Liliana ma Moderna (Spikevax), 00:00:00 - Ext ernal Mrna-lnp, Karl Protein, Pf Covid-19 Vaccine 2021-05-21 Completed Liliana Mason eybold Moderna (Spikevax), 00:00:00 - Ext ernal Mrna-lnp, Karl Protein, Pf Covid-19 Vaccine 2021-05-21 Completed Liliana Mason eyhildald Moderna (Spikevax), 00:00:00 - Ext ernal Mrna-lnp, Karl Protein, Pf CORRINA COVID-19 2021-05-21 Completed Methodis t MRNA VACCINATION 00:00:00 [facility] CORRINA COVID-19 2020-06-19 Completed Methodis t MRNA VACCINATION 00:00:00 [facility] COVID-19 2020-05-22 Completed Methodis t MRNA VACCINATION 00:00:00 [facility] Dexamethasone Dexamethasone 2018-06-23 Completed Common S pirit - 10:47:00 [facility] Dexamethasone Dexamethasone 2018-06-23 Completed Common S pirit - 10:47:00 [facility] Dexamethasone Dexamethasone 2018-06-23 Completed Common S pirit - 10:47:00 [facility] Dexamethasone Dexamethasone 2018-06-23 Completed Common S pirit - 10:47:00 [facility] Dexamethasone Dexamethasone 2018-06-23 Completed Common S pirit - 10:47:00 [facility] Dexamethasone Dexamethasone 2018-06-23 Completed Common S pirit - 10:47:00 [facility] Kenalog Kenalog 2018-06-23 Completed [facility] - (Triamcinolone) (Triamcinolone) 10:46:00 [facility] Kenalog Kenalog 2018-06-23 Completed [facility] - (Triamcinolone) (Triamcinolone) 10:46:00 [facility] Kenalog Kenalog 2018-06-23 Completed [facility] - (Triamcinolone) ([facility]) [facility] - (Triamcinolone) (Triamcinolone) 10:46:00 [facility] Latonia Lincoln 2018-06-23 Completed [facility] - (Triamcinolone) (Triamcinolone) 10:46:00 [facility] Latonia Lincoln 2018-06-23 Completed [facility] - (Triamcinolone) (Triamcinolone) 10:46:00 [facility] Vital Signs Vital Name Observation Time Observation Value Comments Source Body temperature 2022-04-23 16:48:00 36.56 Adilene Shelley baez Seybold - External Respiratory rate 2022-04-23 16:48:00 14 /min Shelley Medrano - External Body height 2022-04-23 16:48:00 182.9 cm Liliana baezboghanshyam - External Body weight 2022-04-23 16:48:00 92.08 kg Liliana baezboghanshyam - External BMI 2022-04-23 16:48:00 27.53 kg/m2 Liliana baezbold - External Oxygen saturation in 2022-04-23 16:48:00 99 /min Liliana Medrano - Arterial blood by External Pulse oximetry Systolic blood 2022-04-23 16:48:00 137 mm[Hg] Liliana Medrano - pressure External Diastolic blood 2022-04-23 16:48:00 70 mm[Hg] Alfonso holland Seybold - pressure External Heart rate 2022-04-23 16:48:00 74 /min Liliana baezbold - External Systolic blood 2022-03-13 16:31:00 138 mm[Hg] Liliana Elenaybold - pressure External Diastolic blood 2022-03-13 16:31:00 70 mm[Hg] Alfonso holland Seybold - pressure External Heart rate 2022-03-13 16:31:00 83 /min Liliana baezbold - External Body temperature 2022-03-13 16:31:00 35.89 Adilene Shelley sasha Seybold - External Respiratory rate 2022-03-13 16:31:00 16 /min Shelley baez Seybold - External Body height 2022-03-13 16:31:00 182.9 cm Liliana Mason eybold - External Body weight 2022-03-13 16:31:00 92.08 kg Liliana Mason eybold - External BMI 2022-03-13 16:31:00 27.53 kg/m2 Liliana Mason eybold - External height 2020-10-16 10:00:00 70 [in_i] [facility] weight 2020-10-16 10:00:00 200 [lb_av] [facility] bmi 2020-10-16 10:00:00 28.69 kg/m2 [facility] height 2020-09-12 09:00:00 70 [in_i] [facility] weight 2020-09-12 09:00:00 201.2 [lb_av] [facility] temperature 2020-09-12 09:00:00 97.7 [degF] [facility] bmi 2020-09-12 09:00:00 28.87 kg/m2 [facility] oximetry 2020-09-12 09:00:00 97 % [facility] blood pressure 2020-09-12 09:00:00 167 mm[Hg] [facility] - systolic [facility] blood pressure 2020-09-12 09:00:00 79 mm[Hg] [facility] - diastolic [facility] height 2020-09-12 08:40:00 70 [in_i] [facility] weight 2020-09-12 08:40:00 201.2 [lb_av] [facility] temperature 2020-09-12 08:40:00 97.7 [degF] [facility] bmi 2020-09-12 08:40:00 28.87 kg/m2 [facility] oximetry 2020-09-12 08:40:00 97 % Common [facility] respiratory rate 2020-09-12 08:40:00 16 /min Comm on [facility] - [facility] blood pressure 2020-09-12 08:40:00 167 mm[Hg] [facility] - systolic [facility] blood pressure 2020-09-12 08:40:00 79 mm[Hg] Common [facility] - diastolic [facility] height 2020-08-07 10:20:00 70 [in_i] [facility] weight 2020-08-07 10:20:00 201 [lb_av] [facility] bmi 2020-08-07 10:20:00 28.84 kg/m2 [facility] Systolic blood 2018-11-11 14:35:00 148 mm[Hg] Univer [facility] Diastolic blood 2018-11-11 14:35:00 80 mm[Hg] Unive rs[facility] Heart rate 2018-11-11 14:35:00 61 /min [facility] Respiratory rate 2018-11-11 14:35:00 16 /min [facility] Oxygen saturation in 2018-11-11 14:35:00 93 /min [facility] blood by [facility] Pulse oximetry [place] Body temperature 2018-11-11 14:21:[address] [facility] 2018-11-09 17:00:00 182.9 cm [facility] Body weight 2018-11-09 17:00:00 81.647 kg [facility] BMI 2018-11-09 17:00:00 24.41 kg/m2 [facility] Systolic blood 2021-11-13 16:45:00 137 mm[Hg] [facility] pressure Diastolic blood 2021-11-13 16:45:00 70 mm[Hg] Metho dist [facility] pressure Heart rate 2021-11-13 16:45:00 80 /min [facility] Respiratory rate 2021-11-13 16:45:00 19 /min [facility] saturation in 2021-11-13 16:45:00 98 /min [facility] Arterial blood by Pulse oximetry Body temperature 2021-11-13 16:22:00 36.56 Adilene [facility] Body height 2021-11-11 15:52:00 182.9 cm [facility] Body weight 2021-11-11 15:52:00 93.849 kg [facility] BMI 2021-11-11 15:52:00 28.06 kg/m2 [facility] Procedures Procedure Date / Time Performing Clinician Source Performed SURGICAL PATHOLOGY 2021-11-13 15:03:00 [facility] REQUEST MA AN ELECTIVE 2021-11-13 13:06:00 Holly Ocampo [facility] SUPRAGLOTTIC AIRWAY Sydnee ARTHROPLASTY, TOE, PIP 2021-11-13 12:37:00 [facility] JOINT, FOR HAMMERTOE POC GLUCOSE 2021-11-13 11:34:00 [facility] ECG PRE/POST OP 2021-11-11 16:40:35 [facility] ospital CBC WITH PLATELET AND 2021-11-11 16:12:00 [facility] DIFFERENTIAL BASIC METABOLIC PANEL 2021-11-11 16:12:00 [facility] HEMOGLOBIN A1C 2021-11-11 16:12:00 [facility] ospital ESTIMATED GFR 2021-11-11 16:12:00 [facility] ospital NOTICE OF BILLING 2020-09-03 21:08:02 Doctor Unassigned, No Univ [facility] PRACTICES FOR MEDICARE Name Medical B ranch PATIENTS DAY SURGERY - ADC 2018-11-11 05:01:00 Doctor Unassigned, No Univ [facility] ASSIGNMENT OF BENEFITS 2018-11-08 16:52:03 Doctor Unassigned, No [facility] ASSIGNMENT OF BENEFITS 2018-11-07 15:15:23 Doctor Unassigned, No [facility] PHYSICIAN ORDERS 2018-11-07 05:01:00 Doctor Unassigned, No Unive [facility] Plan of Care Planned Activity Planned Date Details Comments Source Future Scheduled 2022-06-25 65+ [facility]OCOCCAL [facility] Test 20:29:19 VACCINE (1 - PCV) [code = 65+ PNEUMOCOCCAL VACCINE (1 - PCV)] Future Scheduled 2022-06-25 Hepatitis C screening [facility] Test 20:29:19 (procedure) [code = 911992485] Future Scheduled 2022-06-25 SHINGLES VACCINES (1 [facility] 20:29:19 of 2) [code = SHINGLES VACCINES (1 of 2)] Future Scheduled 2022-06-25 COLONOSCOPY SCREENING [facility] Test 20:29:19 [code = COLONOSCOPY SCREENING] Future Scheduled 2022-06-25 Screening for [facility] Test 20:29:19 malignant neoplasm of lung (procedure) [code = 633436950] Future Scheduled 2022-06-25 COVID-19 VACCINE (4 - [facility] Test 20:29:19 Booster for Moderna series) [code = COVID-19 VACCINE (4 - Booster for Moderna series)] Future Scheduled 2022-06-25 INFLUENZA VACCINE [facility] Test 20:29:19 [code = INFLUENZA VACCINE] Encounters Start End Encounter Admission Attending Care Care Encounter Source Date/Time Date/Time Type Type Clinicians Facility Department ID 2021-05-22 [facility] 09:10:01 [facility] 2021-05-20 Out[facility] Common 09:15:03 [facility] 2021-04-16 Out[facility] Common 13:31:16 [id number] [facility] 2021-04-16 [facility] [id number] Common 13:05:03 [id number] [facility] 2021-04-16 [facility] [id number] Common 11:59:43 [id number] [facility] 2021-04-16 Outpatient KNIGHT, N [facility] [id number] Common 11:59:05 [id number] [facility] 2021-04-16 Outpatient KNIGHT, N [facility] [id number] Common 11:49:26 [id number] [facility] 2021-04-16 Outpatient KNIGHT, N [facility] [id number] Common 11:29:29 [id number] [facility] 2021-04-16 Outpatient KNIGHT, N [facility] [id number] Common 11:29:03 [id number] [facility] 2021-04-16 Outpatient Hubbard, [facility] [id number] Common 10:59:34 [facility] [id number] [facility] 2022-09-11 2022-09-11 Outpatient LILIANA GARCIA [id number] Liliana 10:30:00 10:30:00 KAYLA Seybol d 2022-09-03 2022-09-03 Outpatient MHIE MHIE [id number] Memoria 14:30:00 14:30:00 12 l Nash 2022-09-03 2022-09-03 Outpatient MHIE MHIE [id number] Memoria 14:30:00 14:30:00 12 l Lodge 2022-08-18 2022-08-18 Outpatient LILIANA GARCIA [id number] Liliana 10:30:00 10:30:00 KAYLA Seybol d 2022-07-31 2022-07-31 Outpatient LILIANA GARCIA [id number] Liliana 00:00:00 00:00:00 KAYLA Seybol d 2022-07-21 2022-07-21 Outpatient LILIANA GARCIA [id number] Liliana 10:45:00 10:45:00 KAYLA Seybol d 2022-06-15 2022-06-15 Outpatient LILIANA GARCIA [id number] [place] 00:00:00 00:00:00 KAYLA Seybol d 2022-05-13 2022-05-13 Outpatient LILIANA GARCIA [id number] [place] 00:00:00 00:00:00 KAYLA Seybol d 2022-04-30 2022-04-30 Outpatient JAEHOMA LILIANA SINGH [id number] [place] 10:00:00 10:00:00 Seybol d 2022-04-29 2022-04-29 Outpatient PREZAS LILIANA SINGH [id number] [place] 00:00:00 00:00:00 KAYLA Seybol d 2022-04-23 2022-04-23 Outpatient LAB90 LILIANA SINGH [id number] Liliana 11:45:00 11:45:00 Seybol d 2022-04-23 2022-04-23 Outpatient PREZAS LILIANA SINGH [id number] [place] 11:15:00 11:15:00 KAYLA Seybol d 2022-04-13 2022-04-13 Outpatient LILIANA SINGH [id number] Liliana 11:30:00 11:30:00 Seybol d 2022-04-02 2022-04-02 Outpatient LILIANA SINGH [id number] Liliana 11:30:00 11:30:00 Seybol d 2022-04-02 2022-04-02 Outpatient LILIANA SINGH [id number] Liliana 10:15:00 10:15:00 Seybol d 2022-04-02 2022-04-02 Outpatient PREZASLILIANA [id number] Liliana 00:00:00 00:00:00 KAYLA Seybol d 2022-03-13 2022-03-13 Outpatient LAB90 LILIANA SINGH [id number] Liliana 11:45:00 11:45:00 Seybol d 2022-03-13 2022-03-13 Outpatient PREZALILIANA Mason [id number] Liliana 10:45:00 10:45:00 KAYLA Seybol d 2022-03-11 2022-03-11 Outpatient PREZASLILIANA [id number] Liliana 00:00:00 00:00:00 KAYLA Seybol d 2022-03-11 2022-03-11 Outpatient PREZASLILIANA [id number] Liliana 00:00:00 00:00:00 KAYLA Seybol d 2022-03-09 2022-03-09 Outpatient PREZASLILIANA [id number] Liliana 08:15:00 08:15:00 KAYLA Seybol d 2021-12-12 2021-12-12 Outpatient PREZAS, LILIANA SINGH [id number] Liliana 00:00:00 00:00:00 KAYLA Seybol d 2021-12-11 2021-12-11 Outpatient LAB90 LILIANA SINGH [id number] Liliana 08:25:00 08:25:00 Seybol d 2021-12-09 2021-12-09 Outpatient LILIANA SINGH [id number] Liliana 14:00:00 14:00:00 Seybol d 2021-12-09 2021-12-09 Outpatient PREZAS, LILIANA SINGH [id number] [place] 00:00:00 00:00:00 KAYLA Seybol d 2021-12-08 2021-12-08 Outpatient PREZAS, LILIANA SINGH [id number] Lil[place] 08:30:00 08:30:00 KAYLA Seybol d 2021-11-27 2021-11-27 Outpatient PREZAS, LILIANA SINGH [id number] Liliana 09:30:00 09:30:00 KAYLA Seybol d 2021-11-25 2021-11-25 Outpatient PREZAS, LILIANA SINGH [id number] [place] 14:30:00 14:30:00 KAYLA Seybol d 2021-11-25 2021-11-25 Outpatient PREZAS, LILIANA SINGH [id number] Liliana 14:15:00 14:15:00 KAYLA Seybol d 2021-11-13 2021-11-13 [facility] .2.840.1 [id number] Methodi 05:49:00 12:35:00 Encounter Jackelin Hayes [address]689.1.[address] 3.430.2.7 Hospit a .3.196727 l .8 2021-11-13 2021-11-13 Anesthesia Chino Flores 1.2.840.1 [id number] Methodi 07:37:00 09:58:00 Event Nica Castro 65041.1.[address] 3.430.2.7 Hospit a .3.426423 l .8 2021-11-13 2021-11-13 Surgery [facility], 1.2.840.1 [id number] Methodi 07:30:00 09:00:[address] 3.430.2.7 Hospit a .3.279596 l .8 2021-11-13 2021-11-13 Outpatient [facility] [id number] [place] 00:00:00 00:00:[address] 2021-11-13 2021-11-13 Travel 1.2.840.1 1.2.999.067 [id number] Methodi 00:00:00 00:00:[address] 3.430.2.7 0.2.7.3.698 Ho spita .3.071050 084.8 l .8 2021-11-11 2021-11-11 Pre-Admiss [facility], 1.2.840.1 [id number] Methodi 11:00:00 12:00:00 ion Graciela 64453.1.[address] Testing 3.430.2.7 Hospit a .3.522237 l .8 2021-11-11 2021-11-11 Outpatient [facility] [id number] [place] 00:00:00 00:00:[address] 2021-11-11 2021-11-11 Travel 1.2.840.1 1.2.203.561 [id number] Methodi 00:00:00 00:00:[address] 3.430.2.7 0.2.7.3.698 Ho spita .3.123341 084.8 l .8 2021-11-10 2021-11-10 Travel 1.2.840.1 1.2.052.441 [id number] Methodi 00:00:00 00:00:[address] 3.430.2.7 0.2.7.3.698 [place] .3.644931 084.8 l .8 2021-09-03 2021-09-03 Outpatient MHIE CORTNEY [id number] Memoria 13:45:00 13:45:00 11 l Nash 2021-09-03 2021-09-03 Outpatient MHIE CORTNEY [id number] Memoria 13:45:00 13:45:00 11 l Nash 2021-08-06 2021-08-06 Outpatient MHIE MHIE [id number] Memoria 09:00:00 09:00:00 10 irving Cao 2021-08-06 2021-08-06 Outpatient MHIE IE [id number] Memoria 09:00:00 09:00:00 10 irving Cao 2021-05-21 2021-05-21 (COVID STLMLC STLMLC [id number] Co mmon 00:00:00 00:00:00 Inj) COVID Spi rit Injection - [facility] 2021-05-12 2021-05-12 (TEL) STLMLC STLMLC [id number] Co mmon 00:00:00 00:00:00 Spirit - [facility] 2020-10-16 2020-10-16 OL DIG E/M STLMLC STLMLC [id number] Common 00:00:00 00:00:00 [facility] [place] Spir it MIN - [facility] 2020-09-12 2020-09-12 SUB ANNUAL STLC STLC [id number] Common 00:00:00 00:00:00 MCR Spirit WELLNESS - [facility] 2020-09-12 2020-09-12 OFFICE STLMLC STLMLC [id number] Co mmon 00:00:00 00:00:00 VISIT EST Spir it PT LEVEL 3 - [facility] 2020-09-03 2020-09-03 Office AKILA [place] 1.2.840.114 [id number] [facility] 16:07:34 16:29:51 Visit Jammie WILLIS 350.1.13.10 ity [facility] 4.2.7.2.686 [facility] [id number] [facility] [address] 2020-09-03 2020-09-03 [id number] Univers 16:15:00 16:15:00 JAMMIE [facility] 2020-09-03 2020-09-03 Orders Doctor NIETO 1.2.840.114 [id number] Univers 00:00:00 00:00:00 Only Unassigned, TRI 350.1.13.10 ity [facility] 4.2.7.2.686 [facility] [phone] [facility] [address] 2020-08-29 2020-08-29 (TEL) STLMLC STLMLC [id number] Co mmon 00:00:00 00:00:00 [facility] 2020-08-20 2020-08-20 [facility] 1.2.840.114 [id number] [facility] 00:00:00 00:00:00 Jammie CRUZ 350.1.13.10 ity [facility] 4.2.7.2.686 [facility] [id number] [facility] [place] [address] [facility] 2020-08-07 2020-08-07 OL DIG E/M STLMLC STLMLC [id number] Common 00:00:00 00:00:00 [facility] 11-20 Spir it [facility] 2020-08-06 2020-08-06 Outpatient MHIE IE [id number] Memoria 09:00:00 09:00:00 09 l Lodge 2020-08-06 2020-08-06 Outpatient MHIE MHIE [id number] Memoria 09:00:00 09:00:00 09 l Nash 2020-07-16 2020-07-16 (TEL) STLMLC STLMLC [id number] Co mmon 00:00:00 00:00:00 [facility] 2020-01-17 2020-01-17 Outpatient STLMLC STLMLC [id number] Common 00:00:00 00:00:00 [facility] 2020-01-02 2020-01-02 Outpatient STLMLC STLMLC [id number] Common 00:00:00 00:00:00 [facility] 2019-12-18 2019-12-18 Outpatient STLMLC STLMLC [id number] Common 00:00:00 00:00:00 [facility] 2019-11-07 2019-11-07 Outpatient MHIE MHIE [id number] Memoria 09:15:00 09:15:00 08 l Lodge 2019-11-07 2019-11-07 Outpatient MHIE MHIE [id number] Memoria 09:15:00 09:15:00 07 l Lodge 2019-11-07 2019-11-07 Outpatient MHIE MHIE [id number] Memoria 09:15:00 09:15:00 07 l Lodge 2019-11-07 2019-11-07 Outpatient MHIE MHIE [id number] Memoria 09:15:00 09:15:00 08 l [facility] 2019-09-21 2019-09-21 [facility] [id number] Common 08:20:00 08:20:[address] Sp[address] [facility] 2019-05-09 2019-05-09 Outpatient MHIE MHIE [id number] Memoria 09:00:00 09:00:00 06 l [facility] 2019-05-09 2019-05-09 Outpatient MHIE MHIE [id number] Memoria 09:00:00 09:00:00 06 l [facility] 2019-04-03 2019-04-03 [facility] [id number] Common 08:50:00 08:50:[address] Sp[address] [facility] 2019-03-31 2019-03-31 Outpatient [facility] [id number] Common 09:00:00 09:00:[address] Sp[address] [facility] 2018-11-11 2018-11-11 [facility] 1.2.840.114 [id number] Univers 06:28:00 10:09:00 Encounter Keith Joseph 350.1.13.10 [place] 4.2.7.2.686 [place] [facility] [id number] [facility] [address] 2018-11-11 2018-11-11 Anesthesia [facility] 1.2.840.114 [id number] Univers 07:53:00 09:03:00 Jazz Joseph 350.1.13.10 ity [place]7.2.686 [place] [id number] [facility] 020 [place] 2018-11-11 2018-11-11 Anesthesia [facility] 1.2.840.114 [id number] 07:53:00 09:03:00 Mykeetra [place] 350.1.13.10 [place] 4.2.7.2.686 Surgical [id number] [place] [address] 2018-11-11 2018-11-11 Orders Doctor EMILIA 1.2.840.114 [id number] Univers 00:00:00 00:00:00 Only Unassigned, TRI 350.1.13.10 ity of [place] [facility] 4.2.7.2.686 Emre as [id number] [address] 2018-11-08 2018-11-08 Orders Doctor EMILIA 1.2.840.114 [id number] Univers 00:00:00 00:00:00 Only Unassigned, TRI 350.1.13.10 ity of [place] [facility] 4.2.7.2.686 Emre as [phone] [facility] 009 [place] 2018-11-07 2018-11-07 [place], Adc Lab [facility] 1.2.840.114 [id number] Univers 10:20:29 10:35:29 Visit Keith Jean 350.1.13.10 ity of [place]2.[place] [id number] [facility] [address] 2018-11-07 2018-11-07 Orders Doctor EMILIA 1.2.840.114 [id number] Univers 00:00:00 00:00:00 Only Unassigned, TRI 350.1.13.10 ity of [place] [facility] 4.2.7.2.686 Emre as [id number] [facility] 009 [place] 2018-11-03 2018-11-03 [facility] [id number] Memoria 09:15:00 09:15:00 04 irving Cao 2018-11-03 2018-11-03 Outpatient CORTNEY CORTNEY [id number] Memoria 09:15:00 09:15:00 04 irving Cao 2018-06-29 2018-06-29 Outpatient CORTNEY CORTNEY [id number] Memoria 13:00:00 13:00:00 05 irving Cao 2018-06-29 2018-06-29 Outpatient CORTNEY CORTNEY [id number] Memoria 13:00:00 13:00:00 05 irving Cao 2017-11-11 2017-11-11 Outpatient CORTNEY CORTNEY [id number] Memoria 14:15:00 14:15:00 03 irving Cao 2017-11-11 2017-11-11 Outpatient CORTNEY CORTNEY [id number] Memoria 14:15:00 14:15:00 03 irving Cao 2017-08-17 2017-08-17 Outpatient CORTNEY CORTNEY [id number] Memoria 14:15:00 14:15:00 02 irving Nash 2017-08-17 2017-08-17 [facility] [id number] Memoria 14:15:00 14:15:00 02 irving Cao Results Test Description Test Time Test Comments Results Result Comments Source Surgical pathology request 2021-11-18 00:49:57 Test Item Value Reference Range Interpretation Comme nts Case number (test code = [id number]) [id number] Surgical pathology report (test code = See link below for PDF Lab R eport 7905) Result status (test code = 1784601) This is Final Report for [id number] [facility] [id number] 11:36:00 Test Item Value Reference Range Interpretation Comments POC glucose (test 94 mg/dL 65-99 Eap Counselor N demond: Bard code = 14854-8) Paul ce ID: [id number] [facility] Pre/Post [id number] 05:41:28 Test Item Value Reference Range Interpretation Comments Ventricular rate (test 70 code = 253) Atrial rate (test code = 70 255) MA interval (test code = 146 266) QRSD interval (test code 74 = 260) QT interval (test code = 376 264) QTC interval (test code 406 = 265) P axis 1 (test code = 41 267) QRS axis 1 (test code = 27 095) T wave axis (test code = 86 949) EKG impression (test Normal sinus code = 273) rhythm-Poor R wave progression-Borderlin e ECG-No previous ECGs available-Electronica lly Signed By Pratima VUONG, [facility] ([id number][facility] on 11/12/2021 12:41:24 AM [facility]
[2022-08-12 15:03] LABS: Absolute Lymphocytes (CBC) 1.7 K/uL (0.7-4.9); Hematocrit 39.9 % (39.6-49.0); MCV 88.9 fL (80-100); RBC Red Blood Cell Count 4.49 M/uL (4.33-5.43)
[2022-08-12 15:24] LABS: Potassium 4.8 mEq/L (3.5-5.1); Troponin High Sensitivity 5.6 pg/mL (<58.9)
--- NOTE | 2022-08-12 15:31 | RAD REPORT ---
EXAM DESCRIPTION: David Single View08/12/2022 3:06 pm CLINICAL HISTORY: Chest pain COMPARISON: 2016 FINDINGS: The lungs appear clear of acute infiltrate. The heart is normal size IMPRESSION: No acute abnormalities displayed
--- NOTE | 2022-08-12 16:15 | RAD REPORT ---
EXAM DESCRIPTION: CT - Head Brain Wo Cont - 08/12/2022 4:03 pm CLINICAL HISTORY: Alteration of awareness/confusion COMPARISON: 2017 TECHNIQUE: Computed axial tomography of the head was obtained. IV contrast was not requested. All CT scans are performed using dose optimization technique as appropriate and may include automated exposure control or mA/KV adjustment according to patient size. FINDINGS: An intracranial bleed is not seen The ventricles are normal in caliber No extra-axial fluid collection is noted. Mild low-density areas within periventricular, deep and subcortical white matter likely represent isc hemic changes secondary to small vessel disease. Fluid within the sinuses/ mastoids is not seen. IMPRESSION: No acute intracranial abnormality is seen If patient's symptoms persist MRI of the brain would be recommended
--- NOTE | 2022-08-12 16:21 | RAD REPORT ---
EXAM DESCRIPTION: Roderick Angio08/12/2022 4:04 pm CLINICAL HISTORY: Syncope/dizziness/confusion COMPARISON: 2016 TECHNIQUE: 50 cc Isovue 370 was administered intravenously. 3D MIP reconstruction performed All CT scans are performed using dose optimization technique as appropriate and may include automated exposure control or mA/KV adjustment according to patient size. FINDINGS: Subclavian and brachiocephalic artery unremarkable Mild plaque within the common carotid, internal carotid and external carotid arteries bilaterally The vertebral arteries are unremarkable. Dolichoectasia of the vertebrobasilar artery No dissection IMPRESSION: Mild plaque within the arteries. No significant abnormalities displayed NASCET criteria used. Mild 0-49% stenosis Moderate 50-69% stenosis Severe 70-99% stenosis
--- NOTE | 2022-08-12 16:24 | RAD REPORT ---
EXAM DESCRIPTION: CTHead angio08/12/2022 4:04 pm CLINICAL HISTORY: Syncope/dizziness/confusion COMPARISON: None TECHNIQUE: 100 cc Isovue [address] angiogram of the head was obtained. 3D MIPS reconstruction performed. All CT scans are performed using dose optimization technique as appropriate and may include automated exposure control or mA/KV adjustment according to patient size. FINDINGS: The basilar, internal carotid, anterior cerebral, middle cerebral and posterior cerebral a rteries do not demonstrate a significant abnormality An aneurysm is not seen A significant stenosis is not noted. IMPRESSION: No acute abnormality is displayed
--- NOTE | 2022-08-12 16:33 | RAD REPORT ---
EXAM DESCRIPTION: CT - Facial Bones W/ Mpr - 08/12/2022 4:04 pm CLINICAL HISTORY: Tooth pain COMPARISON: None TECHNIQUE: Computed axial tomography of the face was obtained. Coronal and sagittal reconstruction w as performed. All CT scans are performed using dose optimization technique as appropriate and may include automated exposure control or mA/KV adjustment according to patient size. FINDINGS: A 7 millimeter lucency surrounds left maxillary tooth. Mild chronic left maxillary sinusitis. Globes, orbits and visualized airway are unremarkable. No soft tissues facial abscess. IMPRESSION: 7 millimeter lucency surrounds a left maxillary tooth consistent with a periapical absce ss
[2022-08-12 17:25] LABS: Specific Gravity 1.011 (1.005-1.030); Urine Bilirubin NEGATIVE (Negative); Urine Blood Negative (Negative); Urine Clarity Clear (Clear); Urine Color Light-Yellow (Yellow); Urine Glucose NEGATIVE (Negative); Urine Protein NEGATIVE (Negative); Urine Urobilinogen Normal (Normal); Urine pH 6.5 (5.0-7.0)
--- NOTE | 2022-08-12 17:38 | ER ---
Nurse's Notes [facility] Name: Stephen Rachel Age: 71 yrs Sex: Male : 1950 Arrival Date: 08/12/2022 Time: 13:58 Bed 19 Private MD: Nguyễn Abarca Diagnosis: Dizziness and giddiness;Periapical abscess without sinus Presentation: 08/12 14:15 Chief complaint: Patient states: high bp this morning, 170/101 , also is dizzy and iw confused. Coronavirus screen: At this time, the client does not indicate any symptoms associated with coronavirus-19. Ebola Screen: Patient negative for fever greater than or equal to 101.5 degrees Fahrenheit, and additional compatible Ebola Virus Disease symptoms Patient denies exposure to infectious person. Patient denies travel to an Ebola-affected area in the 21 days before illness onset. No symptoms or risks identified at this time. Initial Sepsis Screen: Does the patient meet any 2 criteria? No. Patient's initial sepsis screen is negative. Does the patient have a suspected source of infection? No. Patient's initial sepsis screen is negative. Risk Assessment: Do you want to hurt yourself or someone else? Patient reports no desire to harm self or others. Onset of symptoms was August 12, 2022. 14:15 Method Of Arrival: Ambulatory iw 14:15 Acuity: ENEIDA 2 iw Historical: - Allergies: 14:16 PENICILLINS; iw - Home Meds: 14:16 atorvastatin 20 mg Oral tab 1 tab once daily [Active]; losartan 100 mg oral tablet iw daily [Active]; famotidine 20 mg Oral tablet every 12 hours [Active]; clopidogrel 75 mg Oral tab 1 tab every other day [Active]; Zyrtec 10 mg Oral tab 1 tab once daily [Active]; levothyroxine 75 mcg oral capsule daily [Active]; - PMHx: 14:16 Hypothyroidism; TIA; Hypertensive disorder; iw - PSHx: 14:16 Tonsillectomy; iw - Immunization history:: Adult Immunizations Client reports receiving the 2nd dose of the Covid vaccine. - Social history:: Smoking status: Patient/guardian denies using tobacco, but has a distant history of tobacco abuse. Screenin:40 Abuse screen: Denies threats or abuse. Nutritional screening: No deficits noted. ap3 Tuberculosis screening: No symptoms or risk factors identified. 17:28 [facility] ED Fall Risk Assessment (Adult) History of falling in the last 3 months, ap3 including since admission No falls in past 3 months (0 pts) Confusion or Disorientation No (0 pts) Intoxicated or Sedated No (0 pts) Impaired Gait No (0 pts) Mobility Assist Device Used No (0 pt) Altered Elimination No (0 pt). Assessment: 14:38 General: Appears in no apparent distress. Behavior is calm, cooperative. Pain: Denies ap3 pain. Neuro: Level of Consciousness is awake, alert, obeys commands, Oriented to person, place, time, situation, Reports dizziness. Cardiovascular: Patient's skin is warm and dry. Respiratory: Airway is patent Respiratory effort is even, unlabored, Respiratory pattern is regular, symmetrical. EENT: Reports recent possible oral infection. Vital Signs: 14:15 BP 162 / 89; Pulse 73; Resp 16; Temp 98.4; Pulse Ox 94% on R/A; iw 16:26 BP 145 / 72; Pulse 68; Pulse Ox 96% on R/A; ap3 17:28 BP 139 / 77; ap3 ED Course: 14:00 Patient arrived in ED. mr 14:01 Nguyễn Abarca DO is Private Physician. mr 14:07 Edu Rubio MD is Attending Physician. bs3 14:16 Triage completed. iw 14:18 Arm band placed on. iw 14:22 Gely Thompson, RN is Primary Nurse. ap3 14:40 Patient has correct armband on for positive identification. Bed in low position. Call ap3 light in reach. Side rails up X2. Adult w/ patient. ladle filler on. Pulse ox on. NIBP on. Door closed. Noise minimized. 14:50 Radiology exam delayed due to lab results not completed at this time. (BUN/Creatinine) [id number] IV insertion attempt and/or patient not having appropriate IV at this time. 14:54 Inserted saline lock: 20 gauge in right antecubital area, using aseptic technique. ap3 Blood collected. 15:08 XRAY Chest (1 view) In Process Unspecified. EDMS 16:05 CT Head Brain wo Cont In Process Unspecified. EDMS 16:05 CT Head Angio In Process Unspecified. EDMS 16:05 CT Neck Angio In Process Unspecified. EDMS 16:05 CT Facial Bones W/O Con In Process Unspecified. EDMS 17:28 No provider procedures requiring assistance completed. ap3 17:37 Nguyễn Abarca DO is Referral Physician. bs3 17:48 IV discontinued, intact, bleeding controlled, No redness/swelling at site. Pressure ap3 dressing applied. Administered Medications: No medications were administered Medication: 14:40 VIS not applicable for this client. ap3 Outcome: 17:37 Discharge ordered by MD. bs3 17:48 Discharged to home ambulatory, with family. ap3 17:48 Condition: good 17:48 Discharge instructions given to patient, Instructed on discharge instructions, follow up and referral plans. medication usage, Demonstrated understanding of instructions, follow-up care, medications, Prescriptions given X 1. 17:48 Patient left the ED. ap3 Signatures: Dispatcher [employer] [facility] June Wang Luanne Martin, RN Gely Marina RN RN ap3 Edu Rubio MD MD bs3 Vivien Stewart [id number]
--- NOTE | 2022-08-12 17:38 | EDPHYS ---
Physician Documentation [facility] Name: Stephen Rachel Age: 71 yrs Sex: Male : 1950 Arrival Date: 08/12/2022 Time: 13:58 Bed 19 Private MD: Nguyễn Abarca ED Physician Edu Rubio HPI: 08/12 15:09 This 71 yrs old Male presents to ER via Ambulatory with complaints of bs3 Confusion, High Blood Pressure. 15:09 71-year-old history of hypothyroidism TIA hypertension presents with unsteadiness, bs3 dizziness and elevated blood pressure he also feels slightly confused but cannot state what he means by that he denies any fevers or chills he denies any chest pain but does note some left arm pain. Historical: - Allergies: 14:16 PENICILLINS; iw - Home Meds: 14:16 atorvastatin 20 mg Oral tab 1 tab once daily [Active]; losartan 100 mg oral tablet iw daily [Active]; famotidine 20 mg Oral tablet every 12 hours [Active]; clopidogrel 75 mg Oral tab 1 tab every other day [Active]; Zyrtec 10 mg Oral tab 1 tab once daily [Active]; levothyroxine 75 mcg oral capsule daily [Active]; - PMHx: 14:16 Hypothyroidism; TIA; Hypertensive disorder; iw - PSHx: 14:16 Tonsillectomy; iw - Immunization history:: Adult Immunizations Client reports receiving the 2nd dose of the Covid vaccine. - Social history:: Smoking status: Patient/guardian denies using tobacco, but has a distant history of tobacco abuse. ROS: 15:09 Constitutional: Negative for fever, chills bs3 15:09 All other systems are negative. Exam: 15:09 Constitutional: This is a well developed, well nourished patient who is awake, alert, bs3 and in no acute distress. Head/Face: Normocephalic, atraumatic. Eyes: Pupils equal round and reactive to light, extra-ocular motions intact. Lids and lashes normal. ENT: mmm, no posterior phyarngeal erythema Neck: Trachea midline, no thyromegaly, no neck stiffness Chest/axilla: Normal chest wall appearance and motion. Nontender with no deformity. No lesions are appreciated. Cardiovascular: Regular rate and rhythm with a normal S1 and S2. symmetric pulses in upper extremities Respiratory: Lungs have equal breath sounds bilaterally, clear to auscultation, no respiratory distress Abdomen/GI: Soft, non-tender, no rebound or guarding Skin: Warm, dry with normal turgor. Normal color with no rashes, no lesions, and no evidence of cellulitis. MS/ Extremity: Pulses equal, no cyanosis. Neurovascular intact. Full, normal range of motion. Neuro: Awake and alert, GCS 15, oriented to person, place, time, and situation. Cranial nerves II-XII grossly intact. Motor strength 5/5 in all extremities. Sensory grossly intact. He has no nystagmus he slowly ambulates but is not unsteady on his feet he is slow to transfer to the bed Psych: Awake, alert, with orientation to person, place and time. Behavior, mood, and affect are within normal limits. 15:[address] elevations or depressions QTc 419 as interpreted by myself bs3 Vital Signs: 14:15 BP 162 / 89; Pulse 73; Resp 16; Temp 98.4; Pulse Ox 94% on R/A; iw 16:26 BP 145 / 72; Pulse 68; Pulse Ox 96% on R/A; ap3 17:28 BP 139 / 77; ap3 MDM: 14:05 Patient medically screened. bs3 17:33 Differential diagnosis: possible cva, although his exam is not consistent, no bs3 nystagmus, steady gait, normal finger to nose. Data reviewed: vital signs, nurses notes. 17:33 Differential diagnosis: CVA, I considered pres but he is not encephalopathy, possible bs3 anemia, electroloyte abnormality, pna, uti. ED course: On reassessment patient is feeling much better his CT is were negative for obvious occlusions he does have a possible dental infection will start antibiotics we had a shared decision-making conversation and the patient wanted to go home given that he was feeling better he has an outpatient neurologist to follow-up with, otherwise his labs were negative for acute pathology. I considered admission for MRI and further workup but he wanted to go home, his ct as inter by myself was neg for ich . ED course: d/w family () at bedside who agrees with plan. . 08/12 14:39 Order name: Basic Metabolic Panel; Complete Time: 15:50 bs3 08/12 14:39 Order name: CBC with Diff; Complete Time: 15:12 08/12 14:39 Order name: Troponin HS; Complete Time: 15:50 bs08/12 16:40 Order name: Urinalysis w/ reflexes; Complete Time: 17:32 bs3 08/12 14:39 Order name: XRAY Chest (1 view); Complete Time: 15:50 bs3 08/12 14:39 Order name: CT Head Brain wo Cont; Complete Time: 16:27 bs3 08/12 14:39 Order name: CT Head Angio; Complete Time: 16:27 bs3 08/12 14:39 Order name: CT Neck Angio; Complete Time: 16:27 bs3 08/12 15:12 Order name: CT Facial Bones W/O Con; Complete Time: 16:38 3 08/12 14:39 Order name: EKG; Complete Time: 14:40 08/12 14:39 Order name: Cardiac monitoring; Complete Time: 15:19 08/12 14:39 Order name: EKG - Nurse/Tech; Complete Time: 15:04 08/12 14:39 Order name: IV Saline Lock; Complete Time: 14:55 08/12 14:39 Order name: Labs collected and sent; Complete Time: 14:55 08/12 14:39 Order name: O2 Per Protocol; Complete Time: 14:41 08/12 14:39 Order name: O2 Sat Monitoring; Complete Time: 14:41 bs3 Administered Medications: No medications were administered Disposition Summary: 08/12/22 17:37 Discharge Ordered Location: Home bs3 Problem: new bs3 Symptoms: have improved bs3 Condition: Stable bs3 Diagnosis - Dizziness and giddiness bs3 - Periapical abscess without sinus bs3 Followup: bs3 - With: Nguyễn Abarca DO - When: 48 Hours - Reason: Re-evaluation by your physician Discharge Instructions: - Discharge Summary Sheet bs3 - Dizziness bs3 - Dental Abscess, [id number] bs3 Forms: - Medication Reconciliation Form bs3 - Thank You Letter bs3 - Antibiotic Education bs3 Prescriptions: - Clindamycin HCl 150 mg Oral Capsule - take 3 capsule by ORAL route every 6 hours for 7 days; 84 capsule; Refills: 0, bs3 Product Selection Permitted Signatures: Dispatcher [employer] Luanne Wagner, RN RN Edu Downey MD MD bs3
[2022-08-12 18:27] VITALS: TEMP 98.4
[2022-08-12 18:33] VITALS: O2SAT 96
[2022-08-12 18:44] VITALS: BP 139/77
--- NOTE | 2022-08-13 12:32 | EKG ---
Test Date: 2022-08-12 Test Time: 15:00:14 Merchandise Flow Manager: SIENNA MEASUREMENT RESULTS: Intervals: Rate: 70 CA: 148 QRSD: 72 QT: 388 QTc: 419 Mccrory: P: 42 CA: 148 QRS: 43 T: 43 INTERPRETIVE STATEMENTS: Normal sinus rhythm Normal ECG Compared to ECG 08/04/2018 14:23:50 No significant changes Electronically Signed On 08-13-22 12:31:44 CDT by Jairo Stoner
== END 2022-08-12 17:48 | disposition home or self-care (01) ==
LOC: ER 13:58
DX: R42 Dizziness and giddiness (principal); K04.7 Periapical abscess without sinus; E03.9 Hypothyroidism, unspecified; I10 Essential (primary) hypertension; Z86.73 Personal history of transient ischemic attack (TIA), and cerebral infarction without residual deficits; Z88.0 Allergy status to penicillin
CPT/HCPCS: 85025; 80048; 36415; 81003; 84484; 70450; 70486; 76377; 70496; 70498; 71045; Q9967; 93005